=== PATIENT | male | born 1940 | race Caucasian/White ===

== ENCOUNTER → 2017-07-31 | Outpatient (CLI) | payer BC ==
--- NOTE | 2017-07-31 15:10 | XR ---
EXAMINATION TYPE: XR chest 2V DATE OF EXAM: 07/31/2017 COMPARISON: NONE HISTORY: Centrilobular emphysema TECHNIQUE: Frontal and lateral views of the chest are obtained. FINDINGS: Interstitial changes are present within the lungs, lung volumes are increased. The aorta i s dense. The heart is small. Pulmonary artery may be prominent, correlate for possible pulmonary shen ry hypertension. Patient is rotated. There may be a scoliosis. Bone density is decreased. No pneumoth orax or pleural effusion. IMPRESSION: Findings compatible with patient's history and additional findings described above.
== END | disposition home or self-care (01) ==
LOC: RADXRYALE 13:45
PROVIDERS: ATTEND Internal Medicine
DX: J43.2 Centrilobular emphysema (principal)
CPT/HCPCS: 71020

== ENCOUNTER → 2018-04-28 | Outpatient (CLI) | payer BC ==
--- NOTE | 2018-04-28 08:44 | CT ---
EXAMINATION TYPE: CT iac w con DATE OF EXAM: 04/28/2018 COMPARISON: NONE HISTORY: Tinnitus and hearing loss CT DLP: 219 mGycm Automated exposure control for dose reduction was used. CONTRAST: CT scan of the IACs is performed with IV Contrast, patient injected with 100 mL of Isovue 300. FINDINGS: The external auditory canals are patent bilaterally. Mastoid air cells show no evidence of abnormal opacification bilaterally. The middle ear ossicles are symmetric and unremarkable. There is no evidence of suspicious surrounding soft tissue density to suggest cholesteatoma. The scu rex is preserved bilaterally. The cochlea and the semicircular canals are symmetric and unremarkable. Vestibular aqueduct and inte rnal carotid canal appear unremarkable. Temporomandibular joints are maintained bilaterally. There is moderate to severe changes of chronic sinusitis. There is be moderate changes of left mastoi ditis. IMPRESSION: 1. Left mild to moderate mastoiditis. 2. Moderate to severe changes of chronic sinusitis
== END | disposition home or self-care (01) ==
LOC: RADCTMAIN 06:34
PROVIDERS: ATTEND Internal Medicine
DX: H70.92 Unspecified mastoiditis, left ear (principal); J32.9 Chronic sinusitis, unspecified
CPT/HCPCS: 82565; 84520; 70481; 36415; Q9967

== ENCOUNTER → 2018-05-11 | Outpatient (CLI) | payer BC ==
--- NOTE | 2018-05-11 10:17 | XR ---
EXAMINATION TYPE: XR chest 2V DATE OF EXAM: 05/11/2018 COMPARISON: 07/31/2017 HISTORY: 77-year-old male COPD, preop for ear surgery TECHNIQUE: PA and lateral views FINDINGS: Heart normal size. Mild atherosclerotic arch calcifications. There are scattered areas of peripheral scarring and scattered strandy scarring. Hazy midlung density is related to overlying soft tissue. Fl attening of the hemidiaphragm with increased AP chest dimension. No consolidation or pleural effusion . Bilateral nipple shadows. IMPRESSION: 1. COPD. Chronic appearing parenchymal changes. Given patient's increased risk for development of feliz g cancer, consider nonemergent follow-up CT to exclude underlying pulmonary nodules. 3. No acute process seen.
== END | disposition home or self-care (01) ==
LOC: RADXRMAIN 08:21
PROVIDERS: ATTEND Otolaryngology
DX: J44.9 Chronic obstructive pulmonary disease, unspecified (principal)
CPT/HCPCS: 71046

== ENCOUNTER → 2018-05-18 | Outpatient (CLI) | payer BC ==
[2018-05-18 18:36] LABS: Blood Urea Nitrogen 18 mg/dL (9-20)
--- NOTE | 2018-05-18 23:50 | CT ---
EXAMINATION TYPE: CT chest w con DATE OF EXAM: 05/18/2018 COMPARISON: Radiograph 05/11/2018 HISTORY: 77-year-old male pulmonary nodule, Pre-surgical for myringotomy tubes. TECHNIQUE: Contiguous axial scanning of the chest after the administration of 100ml mL of Isovue M300 . Coronal/sagittal reconstructions performed. CT DLP: 138.6mGycm. Automatic exposure control utilized for a dose reduction. FINDINGS: Heart normal size without pericardial effusion. Coronary vessel calcifications are present. Aorta normal caliber with mild atherosclerotic arch calcifications. Conventional arterial vessel bran haylee anatomy. Prominent but nonenlarged 8mm left tracheobronchial angle lymph node. No thoracic lymphadenopathy by CT size criteria. Borderline to mildly enlarged caliber to the main right and left pulmonary arteries is 2.6 and 2.7 cm , respectively, suggesting underlying pulmonary arterial hypertension. There is moderate to advanced centrilobular and paraseptal emphysema with over the midlung predominan t bullous changes. No consolidation or pleural effusion. No suspicious pulmonary nodule or mass is id entified. Scattered hypodense lesions within the liver too small for accurate CT characterization, likely cysts . Bones: Accentuated midthoracic kyphosis with moderate multilevel degenerative disc disease. IMPRESSION: 1. COPD with moderate to advanced emphysema and upper to mid lung predominant bullous changes. No amy picious pulmonary nodule or mass. 2. Pulmonary arterial hypertension and CAD.
== END | disposition home or self-care (01) ==
LOC: RADCTMAIN 18:06
PROVIDERS: ATTEND Otolaryngology
DX: J43.9 Emphysema, unspecified (principal); I27.20 Pulmonary hypertension, unspecified; I25.10 Atherosclerotic heart disease of native coronary artery without angina pectoris; R91.8 Other nonspecific abnormal finding of lung field
CPT/HCPCS: 82565; 84520; 71260; 36415; Q9967

== ENCOUNTER 2018-05-21 08:25 | Day surgery (SDC) | payer BC ==
[2018-05-15 13:40] VITALS: BMI 20.3
[~2018-05-21 08:25] MED LIST: DEXAMETHASONE SOD PHOSPHATE 4 MG/ML 1 ML VIAL IV ONE; FAMOTIDINE 20 MG/2 ML VIAL IV ONE; LACTATED RINGERS 1,000 ML IV SCH; LIDOCAINE 1% 20 ML VIAL (10MG/ML) FOR IV START INTRADERMA PRN; MELOXICAM 7.5 MG TAB PO ONE; ONDANSETRON 4 MG/2 ML VIAL IVP ONE; ceFAZolin 1,000 MG in DEXTROSE/WATER 1 50ML.BAG IV ONE
[2018-05-21] MEDS: OXYMETAZOLINE 0.05% NASL SPRAY 1 SPRAY BOTTLE NASAL ONE ×5 (09:40→10:00)
[2018-05-21] MEDS ORDERED: DEXAMETHASONE SOD PHOSPHATE 10 MG/ML 1 ML VIAL IV ONE (09:50)
[2018-05-21] MEDS ORDERED: ONDANSETRON 4 MG/2 ML VIAL IVP ONE (09:50)
[2018-05-21] MEDS ORDERED: MIDAZOLAM 2 MG/2 ML VIAL ONE (10:39)
[2018-05-21] MEDS ORDERED: LIDOCAINE 1% INJ 10MG/ML (20 ML MDV) ONE (10:39)
[2018-05-21] MEDS ORDERED: fentaNYL (PF) 50 MCG/ML 2 ML AMP ONE (10:39)
[2018-05-21] MEDS ORDERED: DEXAMETHASONE SOD PHOS (MDV) 100 MG/10 ML VIAL ONE (10:39)
[2018-05-21] MEDS ORDERED: PROPOFOL 10 MG/ML 20 ML VIAL IV ONE (10:39)
[2018-05-21] MEDS ORDERED: SUCCINYLCHOLINE CHLORIDE 100 MG/5 ML SYR IV ONE (10:39)
[2018-05-21] MEDS ORDERED: CIPROFLOXACIN-DEXAMETH 0.3-0.1% DROPS 7.5 ML BTL BOTH EARS ONE (10:56)
[2018-05-21] MEDS ORDERED: EPINEPHrine 1 MG/ML (MDV) 30 ML VIAL IRRIGATION ONE (10:57)
[2018-05-21] MEDS ORDERED: FLUORESCEIN STRIPS 1 MG STRIP MISCELLANE ONE (10:57)
[2018-05-21] MEDS ORDERED: LIDOCAINE 1%-EPI 1:100,000 20 ML VIAL SQ ONE ×2 (10:57)
[2018-05-21] MEDS ORDERED: ROPIVACAINE 5 MG/ML 30 ML VIAL MISCELLANE ONE (10:59)
[2018-05-21 12:20] VITALS: TEMP 97.1
--- NOTE | 2018-05-21 12:28 | P.OP ---
Date of Procedure: 05/21/18 Preoperative Diagnosis: Chronic otitis media with effusion Eustachian tube dysfunction Conductive hearing loss Chronic maxillary, ethmoid, sphenoid sinusitis Left tonsil mass Deviated nasal septum Postoperative Diagnosis: Same Procedure(s) Performed: Bilateral direct microscopic tympanostomy tube placement Bilateral balloon eustachian tuboplasty Functional endoscopic sinus surgery Left tonsil biopsy Septoplasty Anesthesia: GETA Surgeon: Aneudy Lucas Estimated Blood Loss (ml): 10 Pathology: other (Sinonasal and left tonsil) Condition: stable Disposition: PACU Indications for Procedure: This patient has had problems with persistent eustachian tube dysfunction bilateral middle ear effusions hearing loss chronic sinusitis congestion. He has severe ear fullness congestion and blockage of both eustachian tubes in spite of medical therapy. He's been on multiple trials of antibiotics nasal sprays etc. with no improvement he has nasal obstruction, anosmia, he continues to smoke AGAINST MEDICAL ADVICE. He gets facial pressure. Drainages constantly discolored. He is motivated to find a surgical option. All risks, benefits, and alternative therapies were discussed. Consent was obtained and all questions were answered. Operative Findings: Patient had severe bilateral middle ear effusion was severe eustachian tube dysfunction and evidence of chronic sinusitis of the maxillary ethmoid and sphenoid sinuses. Deviated septum to the right with severe. Left tonsil was enlarged and suspicious. This was biopsied accordingly. Description of Procedure: Prior to surgery, all risks, benefits, and alternative therapies were discussed again with the patient and family. Risks of bleeding, need for second tubes, perforation, early extrusion of tubes, etc. etc. were explained. All questions were answered and a consent was obtained. This patient was taken to the operative room and placed in the supine position. Mask inhalation anesthesia was performed by the department of anesthesia. The patient was monitored throughout the entire case by the department of anesthesia. Both tympanic membranes were visualized with an operating Zeiss microscope. Cerumen and epithelial debris was removed from the external auditory canals bilaterally. The tympanic membranes were visualized under an operative microscope. Tympanostomy incisions were made inferiorly. Fluid was suctioned from the middle ear space with use of a #3 and #5 Bishop suction with care to avoid any trauma to the middle ear structures. Ventilation tubes were then inserted bilaterally. Excellent placement was obtained. A caudal incision was made over the caudal portion of the left septum down to the mucoperichondrium. A mucoperichondrial flap was developed with use of tunnels inferiorly and superiorly. We identified the deviation and with use of crosshatching incisions and removal of some redundant strips of septal cartilage , the septum was placed back in the midline in excellent position relieving this patient of this deviated nasal septum. We closed the incision with a 40 rapid Vicryl and a quilting stitch was used to reapproximate the septal flap. The septum was corrected and a swing door type fashion. The septum was sutured fixated to the vomer area and groove with use of a 40 rapid Vicryl. Attention was then paid to the middle turbinates which were brought medial. The uncinate process was visualized and reflected forward with a Rose probe. With the use of an endoscope utilizing 0 30 and 90 we perform this procedure and utilize this endoscope on a video camera throughout the entire procedure. This was with use of a Ledbetter edd scope. We then took down the uncinate process with a pediatric backbiter and a microdebrider. After the uncinate process was removed the maxillary sinuses were opened widely with use of a straight boss. We open the maxillary sinuses widely and into the maxillary sinuses with endoscopic visualization. Diseased tissue was removed from the maxillary sinuses bilaterally and the sinuses were opened bilaterally. After the maxillary sinuses were opened and diseased tissue was removed attention was then paid to the ethmoid bulla. From a medial to lateral position we took down the ethmoid bulla. We identified the roof of the maxillary sinus and the inferior attachment of the superior turbinate and then took down the basal lamella and into the posterior ethmoid air cells. We did a total ethmoidectomy with use of an up-biting boss. Excellent results were obtained. Diseased tissue was found in the ethmoid sinuses and removed. Examination of the sphenoid ostium showed a profuse amount of drainage coming from the ostium's bilaterally. We then entered the sphenoid sinus underneath the inferior attachment of the superior turbinate. The sphenoid sinus was opened with the microdebrider and diseased tissue was removed from each sphenoid sinus. This was also done with use of endoscopic visualization. . Excellent hemostasis was obtained throughout the entire case and very low blood was noted. The skull base and orbital hernandez looked good. We reinspected the sinonasal region and no bleeding was encountered. Xerogel was placed bilaterally. An endoscope was inserted utilizing a 0 Ledbetter edd scope and a a aclarent balloon eustachian tuboplasty balloon was inserted into the eustachian tubes bilaterally under endoscopic visualization. There was fibrosis noted in the eustachian tube as we inserted the tube. The tube was inflated in the standard fashion. The patient tolerated this well and the instrumentation was removed. Attention was then paid to the mouth which was opened and the tonsils were visualized bilaterally the left side was much bigger than the right a left tonsil biopsy was performed and hemostasis was obtained with use of suction electrocoagulation. Excellent biopsy was performed and hemostasis was complete. .
[2018-05-21] MEDS: HYDROmorphone 0.5 MG/0.5 ML SYRINGE IVP PRN ×3 (12:31→12:55)
[2018-05-21 13:01] VITALS: RESP 18
[2018-05-21 13:34] VITALS: BP 117/78; PULSE 78
== END 2018-05-21 14:02 | disposition home or self-care (01) ==
LOC: OR 08:25
PROVIDERS: ATTEND Otolaryngology
DX: H65.493 Other chronic nonsuppurative otitis media, bilateral (principal); H69.93 Unspecified Eustachian tube disorder, bilateral; H90.2 Conductive hearing loss, unspecified; J32.0 Chronic maxillary sinusitis; J32.2 Chronic ethmoidal sinusitis; J32.3 Chronic sphenoidal sinusitis; J35.1 Hypertrophy of tonsils; J34.2 Deviated nasal septum; H70.92 Unspecified mastoiditis, left ear; J43.9 Emphysema, unspecified; K21.9 Gastro-esophageal reflux disease without esophagitis; F17.200 Nicotine dependence, unspecified, uncomplicated; Z79.2 Long term (current) use of antibiotics; Z79.51 Long term (current) use of inhaled steroids; Z79.899 Other long term (current) drug therapy
CPT/HCPCS: 88305; 88300; 69436; 30520; 31267; 31259; 69799; 42800; C1726; J0171; J2250; J1100 ×2; J2405; J2001; J3010; J0690; J2795; J0330; J2704; J1170

== ENCOUNTER → 2018-07-14 | Outpatient (CLI) | payer BC ==
--- NOTE | 2018-07-14 23:59 | CT ---
EXAMINATION TYPE: CT iac wo con DATE OF EXAM: 07/14/2018 COMPARISON: 04/28/2018 HISTORY: 77-year-old male chronic sinusitis, c/o fluid in ears with hearing loss, mastoiditis. CT DLP: 117.2 mGycm Automated exposure control for dose reduction was used. TECHNIQUE: Contiguous high-resolution axial scanning of the temporal bones performed without IV cont rast. Coronal reformatted images obtained. FINDINGS: Visualized intracranial structures show no gross abnormality by thin section CT. Small amount of debris deep within both external auditory canals adjacent to the tympanic membranes. The external auditory canals are otherwise patent. No partial opacification within the right epitympanum and mesotympanum partially encasing the malleus and incus. Partial opacification of right mastoid air cells. The left middle ear cavity remains ashley r though there is continued partial opacification of the mid and inferior left mastoid air cells. No destruction of the fine osseous septa of the mastoid air cells. There is no abnormality of middle ear ossicles. The round and oval windows are normal. There is no abnormality of bony labyrinths. The vestibular aqueduct are well visualized. The facial nerve canal is normal bilaterally. The internal auditory canal and meati are symmetrical bilaterally. There is no evidence of fractures. Suggestion of prior FESS with improved mucosal thickening within sphenoid and maxillary sinuses thoug h persistent moderate mucosal thickening in the ethmoid air cells. Reformatted images confirm above findings. IMPRESSION: 1. Correlate for new right-sided otomastoiditis. 2. Continued opacification of the mid and inferior left mastoid air cells which could represent masto iditis. 3. Some debris now noted deep within both external auditory canals adjacent to the tympanic membranes . 4. Continued moderate chronic ethmoid sinus disease. There is improvement in the previously seen sphe noid and maxillary sinus disease.
== END | disposition home or self-care (01) ==
LOC: RADCTMAIN 15:17
PROVIDERS: ATTEND Otolaryngology
DX: H70.90 Unspecified mastoiditis, unspecified ear (principal)
CPT/HCPCS: 70480

== ENCOUNTER → 2019-03-24 | Outpatient (CLI) | payer BC ==
--- NOTE | 2019-03-24 10:13 | XR ---
EXAMINATION TYPE: XR chest 2V DATE OF EXAM: 03/24/2019 COMPARISON: 05/11/2018 HISTORY: Shortness of breath TECHNIQUE: Frontal and lateral views of the chest are obtained. FINDINGS: Scattered senescent parenchymal changes noted. Hyperinflation compatible with COPD. No evidence for infiltrate. No evidence for atelectasis. Heart size is stable. Mediastinal structures are stable and grossly unremarkable. No evidence for hilar prominence. Degenerative changes dorsal spine. IMPRESSION: 1. No evidence for acute pulmonary disease.
== END ==
LOC: RADXRYALE 09:45
PROVIDERS: ATTEND Internal Medicine
DX: R59.0 Localized enlarged lymph nodes (principal)
CPT/HCPCS: 71046

== ENCOUNTER 2021-06-23 10:05 | Emergency (ER) | payer OTHER, BC ==
[2021-06-23 10:20] VITALS: TEMP 98.4
[2021-06-23] MEDS ORDERED: MORPHINE SULFATE 2 MG/ML SYRINGE IM STA (10:41)
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
[2021-06-23 11:52] VITALS: BP 132/76; PULSE 67; RESP 16
== END 2021-06-23 12:57 | disposition home or self-care (01) ==
LOC: EC 10:05
DX: S32.010A Wedge compression fracture of first lumbar vertebra, initial encounter for closed fracture (principal); J44.9 Chronic obstructive pulmonary disease, unspecified; F17.200 Nicotine dependence, unspecified, uncomplicated; Z79.899 Other long term (current) drug therapy; V43.52XA Car driver injured in collision with other type car in traffic accident, initial encounter; Y92.89 Other specified places as the place of occurrence of the external cause
CPT/HCPCS: 72170; 73080; 72131; 99284; 96372; J2270

== ENCOUNTER → 2021-06-29 | Outpatient (CLI) | payer BC ==
[2021-06-29 13:55] LABS: Basophils # (A) 0.1 k/uL (0-0.2); Basophils % (A) 1 %; Eosinophils # (A) 0.1 k/uL (0-0.7); Eosinophils % (A) 2 %; HCT 44.4 % (39.0-53.0); HGB 14.5 gm/dL (13.0-17.5); Lymphocytes # (A) 1.9 k/uL (1.0-4.8); Lymphocytes % (A) 29 %; MCH 33.6 pg (25.0-35.0); MCHC 32.7 g/dL (31.0-37.0); MCV 102.7 fL (80.0-100.0); Macrocytosis Slight; Mean Platelet Volume 6.8; Monocytes # (A) 0.3 k/uL (0-1.0); Monocytes % (A) 4 %; Neutrophils # (A) 3.9 k/uL (1.3-7.7); Neutrophils % (A) 61 %; Platelet Count 277 k/uL (150-450); RBC 4.33 m/uL (4.30-5.90); RDW 14.6 % (11.5-15.5); WBC 6.5 k/uL (3.8-10.6)
[2021-06-29 14:13] LABS: Potassium 4.8 mmol/L (3.5-5.1)
== END | disposition home or self-care (01) ==
LOC: LABPAT 12:24
PROVIDERS: ATTEND Orthopaedic Surgery
DX: Z01.812 Encounter for preprocedural laboratory examination (principal); S32.012A Unstable burst fracture of first lumbar vertebra, initial encounter for closed fracture; X58.XXXA Exposure to other specified factors, initial encounter
CPT/HCPCS: 36415; 80051; 85025

== ENCOUNTER 2021-07-03 06:22 | Observation (INO) | payer BC ==
[2021-06-29 11:46] VITALS: BMI 19.5
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
[~2021-07-03 06:22] MED LIST changes: -DEXAMETHASONE SOD PHOSPHATE 4 MG/ML 1 ML VIAL IV ONE; -FAMOTIDINE 20 MG/2 ML VIAL IV ONE; -LACTATED RINGERS 1,000 ML IV SCH; +LIDOCAINE 1% (10MG/ML) FOR IV START INTRADERMA PRN; -LIDOCAINE 1% 20 ML VIAL (10MG/ML) FOR IV START INTRADERMA PRN; -MELOXICAM 7.5 MG TAB PO ONE; -ceFAZolin 1,000 MG in DEXTROSE/WATER 1 50ML.BAG IV ONE
[2021-07-03] MEDS: LACTATED RINGERS 1,000 ML IV SCH (07:31)
--- NOTE | 2021-07-03 08:09 | P.PN ---
Progress Note - Text Progress Note Date: 07/03/21 Pt s/e in pre op. All protocols followed. We discussed again the risks and benefits of the procedure as outlined. Pt was willing to proceed with surgery. ABX given. site marked. Consent confirmed.
[2021-07-03] MEDS ORDERED: NEOSTIGMINE 1 MG/ML 10 ML VIAL ONE (08:38)
[2021-07-03] MEDS ORDERED: LIDOCAINE 1% INJ 10MG/ML (20 ML MDV) ONE (08:38)
[2021-07-03] MEDS ORDERED: ROCURONIUM 10 MG/ML (5 ML VIAL) IV ONE (08:38)
[2021-07-03] MEDS ORDERED: PHENYLEPHRINE-0.9% NACL SYG 1,000 MCG/10 ML SYRINGE ONE (08:38)
[2021-07-03] MEDS ORDERED: GLYCOPYRROLATE 0.2 MG/ML 2 ML VIAL ONE (08:38)
[2021-07-03] MEDS ORDERED: SUCCINYLCHOLINE CHLORIDE 100 MG/5 ML SYR IV ONE (08:38)
[2021-07-03] MEDS ORDERED: fentaNYL (PF) 50 MCG/ML 2 ML AMP ONE (08:38)
[2021-07-03] MEDS ORDERED: KETAMINE 10 MG/ML 20 ML VIAL ONE (08:38)
[2021-07-03] MEDS ORDERED: PROPOFOL 10 MG/ML 20 ML VIAL IV ONE (08:38)
[2021-07-03] MEDS ORDERED: IOPAMIDOL M200 10 ML VIAL MISCELLANE ONE (08:54)
[2021-07-03] MEDS ORDERED: MINERAL OIL 1 APPLIC/ML OIL MISCELLANE ONE (08:55)
[2021-07-03] MEDS ORDERED: BUPIVACAINE (PF) 0.25% 30 ML VIAL SQ ONE ×2 (08:58)
[2021-07-03] MEDS ORDERED: GELATIN SPONGE,ABSORB (LARGE) 1 EACH SPONGE TOPICAL ONE (09:05)
[2021-07-03] MEDS ORDERED: THROMBIN (BOVINE) 5,000 UNIT VIAL TOPICAL ONE (09:05)
[2021-07-03] MEDS ORDERED: LACTATED RINGERS 1,000 ML IV ONE (10:45)
[2021-07-03] MEDS ORDERED: CYCLOBENZAPRINE 5 MG TAB PO PRN (11:15)
--- NOTE | 2021-07-03 11:17 | P.PN ---
Progress Note - Text Progress Note Date: 07/03/21 Brief Post Op: Surgeon: Rashmi Pre op dx; L1 burst fracture Post op dx: Same Procedure: T11 to L2 posterior instrumented stabilization with L1 kyphoplasty Anesthesia: GETA EBL: 50 mL Fluids: Thousand cc UO: 500 mL Dispo: Stable to PACU Post op Plan: Post operative noncontrasted CT scan Encourage ambulation IS 10x/hr Teds/SCDs Pain control No brace needed for ambulation
[2021-07-03] MEDS: HYDROmorphone 0.5 MG/0.5 ML SYRINGE IVP PRN ×4 (11:20→12:17)
--- NOTE | 2021-07-03 12:11 | FL ---
Fluoroscopy INDICATION: Pain FINDINGS: Fluoroscopy time: 1 minute 46 seconds. Images obtained: 0. IMPRESSIONS: 1. Documentation of fluoroscopy.
[2021-07-03] MEDS: HYDROcodone/APAP 5-325MG 1 EACH TAB PO PRN ×2 (14:52→23:03)
--- NOTE | 2021-07-03 15:30 | XR ---
Fluoroscopy INDICATION: Pain, kyphoplasty FINDINGS: Fluoroscopy time: 1 minute 46 seconds. Images obtained: 0. IMPRESSIONS: 1. Documentation of fluoroscopy.
[2021-07-03] MEDS ORDERED: IPRATROPIUM-ALBUTEROL 3 ML NEB INHALATION PRN (15:39)
[2021-07-03] MEDS ORDERED: MORPHINE SULFATE 4 MG/ML SYRINGE IVP STA (15:39)
[2021-07-03] MEDS ORDERED: NICOTINE GUM (POLACRILEX) 2 MG GUM BUCCAL PRN (15:47)
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
[2021-07-03] MEDS: NICOTINE 21MG/24HR PATCH TRANSDERM SCH (17:03)
--- NOTE | 2021-07-03 18:39 | CT ---
EXAMINATION TYPE: CT thor lumbar spine wo con DATE OF EXAM: 07/03/2021 COMPARISON: same-day radiographs. CT 06/23/2021. HISTORY: Post op fusion today. TECHNIQUE: Axial CT images of the thoracolumbar spine was performed without contrast. Coronal and sag ittal reformats were provided and reviewed. CT DLP: 895 mGycm Automated exposure control for dose reduction was used. FINDINGS: There is interval T11, L1 and L2 vertebral plasty. There is also demonstration of T11-L2 posterior in strumented fusion. There is chronic moderate L1 compression fracture. There is also mild T11 compress ion deformity. No new fracture is seen. There is moderate soft tissue emphysema within the posterior paraspinal soft tissues most notable at the surgical site and tracking cranially and caudally. No significant fluid collection is seen. No si gnificant central canal stenosis within the limitations of the CT. Moderate to advanced emphysema is seen. Otherwise no significant focal opacity, pleural effusion or p neumothorax seen. IMPRESSION: INTERVAL THORACOLUMBAR POSTSURGICAL CHANGES ABOVE. POSTOPERATIVE PARASPINAL SOFT TISSUE EMPHYSEMA IS SEEN. OTHERWISE NO DEFINITE ACUTE ABNORMALITY WITHIN THE LIMITATIONS OF THE STUDY.
[2021-07-03] MEDS: SENNOSIDES-DOCUSATE SODIUM 1 EACH TAB PO PRN (19:54)
[2021-07-04] MEDS ORDERED: HYDROcodone/APAP 7.5-325MG 1 EACH TAB PO PRN (01:57)
[2021-07-04] MEDS ORDERED: HYDROmorphone 0.5 MG/0.5 ML SYRINGE IVP PRN (01:58)
[2021-07-04] MEDS: HYDROmorphone 1 MG/ML 1 ML SYRINGE IVP PRN ×3 (02:25→22:52)
[2021-07-04] MEDS: LACTATED RINGERS 1,000 ML IV SCH (07:05)
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
[2021-07-04] MEDS ORDERED: ACETAMINOPHEN IV (For NPO) 1,000 MG in EMPTY BAG 1 BAG IVPB STA (07:59)
[2021-07-04] MEDS: NICOTINE 21MG/24HR PATCH TRANSDERM SCH (08:44)
[2021-07-04] MEDS: PANTOPRAZOLE 40 MG TABLET PO SCH (08:44)
[2021-07-04] MEDS: polyethylene glycoL 3350 17 GM POWD.PACK PO SCH (08:44)
[2021-07-04] MEDS: HYDROcodone/APAP 7.5-325MG 1 EACH TAB PO PRN ×3 (09:06→21:09)
[2021-07-04] MEDS: CYCLOBENZAPRINE 10 MG TAB PO PRN ×2 (09:07→21:09)
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
[2021-07-04] MEDS: valACYclovir 500 MG TAB PO SCH (14:00)
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
[2021-07-04] MEDS: SENNOSIDES-DOCUSATE SODIUM 1 EACH TAB PO PRN (22:52)
[2021-07-05] MEDS: HYDROcodone/APAP 7.5-325MG 1 EACH TAB PO PRN ×4 (04:10→21:37)
[2021-07-05] MEDS: HYDROmorphone 1 MG/ML 1 ML SYRINGE IVP PRN (06:29)
[2021-07-05] MEDS: LACTATED RINGERS 1,000 ML IV SCH (07:37)
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
[2021-07-05 09:20] LABS: Basophils # (A) 0.02 X 10*3/uL (0.00-0.10); Basophils % (A) 0.3 %; Eosinophils # (A) 0.08 X 10*3/uL (0.04-0.35); Eosinophils % (A) 1.3 %; HGB 11.3 g/dL (13.0-17.0); Lymphocytes # (A) 1.32 X 10*3/uL (0.90-5.00); Lymphocytes % (A) 21.2 %; MCH 32.5 pg (27.0-32.0); MCHC 33.2 g/dL (32.0-37.0); MCV 97.7 fL (80.0-97.0); Mean Platelet Volume 9.8 fL (9.5-12.2); Monocytes # (A) 0.49 X 10*3/uL (0.20-1.00); Monocytes % (A) 7.9 %; Platelet Count 182 X 10*3/uL (140-440); RBC 3.48 X 10*6/uL (4.40-5.60); RDW 14.2 % (11.5-14.5); WBC 6.23 X 10*3/uL (4.50-10.00)
[2021-07-05] MEDS: polyethylene glycoL 3350 17 GM POWD.PACK PO SCH (09:30)
[2021-07-05] MEDS: valACYclovir 500 MG TAB PO SCH (09:32)
[2021-07-05] MEDS: PANTOPRAZOLE 40 MG TABLET PO SCH (09:32)
[2021-07-05] MEDS: NICOTINE 21MG/24HR PATCH TRANSDERM SCH (09:33)
[2021-07-05 10:07] LABS: African American GFR (CKD) 93.2 (60.0-200.0); Albumin 3.5 g/dL (3.80-4.90); Albumin/Globulin Ratio 1.35 (1.60-3.17); BUN/Creat Ratio 12.22 Ratio (12.00-20.00); Calcium 8.5 mg/dL (8.7-10.3); Globulin 2.6 g/dL (1.6-3.3); Non-African American GFR(CKD) 80.4 (60.0-200.0); Potassium 3.7 mmol/L (3.5-5.5); Total Bilirubin 0.7 mg/dL (0.3-1.2); Total Protein 6.1 g/dL (6.2-8.2)
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
[2021-07-05] MEDS: SENNOSIDES-DOCUSATE SODIUM 1 EACH TAB PO PRN (19:49)
[2021-07-06] MEDS: HYDROcodone/APAP 7.5-325MG 1 EACH TAB PO PRN (04:11)
[2021-07-06] MEDS: LACTATED RINGERS 1,000 ML IV SCH (04:13)
[2021-07-06 06:51] VITALS: BP 145/70; PULSE 83; RESP 20; TEMP 98
[2021-07-06] MEDS: PANTOPRAZOLE 40 MG TABLET PO SCH (07:24)
--- NOTE | 2021-07-06 08:59 | P.DS ---
Providers Date of admission: 07/04/21 13:42 Expected date of discharge: 07/06/21 Attending physician: Selvin Caraballo DO Consults: 07/03/21 11:08 Consult Physician Routine Consulting Provider: Nu Burnham Consult Reason/Comments: medical management s/p T11-L3 MIS screws & rods & Kyphoplasty Do you want consulting provider notified?: Yes Primary care physician: Todd Chow Hospital Course: Date of admission: 07/03/2021 Date of discharge: 07/06/2021 Admission diagnosis: L1 AOA3 burst fracture Discharge diagnosis: Same Attending physician: Dr. Caraballo Surgical procedures: T11 to L2 posterior instrumentation and fusion; L1 kyphoplasty; michael intraoperative navigation Brief history: Patient is a 80-year-old male with a history of L1 AOA3 burst fracture and mechanical back pain. At this point patient has failed conservative treatment measures and has opted to proceed with a elective T11 to L2 posterior instrumentation and fusion; L1 kyphoplasty. Hospital course: Details of patient's surgery can be found in operative report. Patient tolerated the procedure well and was subsequently transported to orthopedic floor. Patient's orthopedic and medical care was provided daily. Patient had daily laboratory tests performed for evaluation of overall blood counts. Patient had daily physical therapy to include strengthening range of motion as well as education with walker ambulation. Patient was noted to have a relatively uneventful postoperative course. Patient reported satisfactory pain control with oral pain medications by postoperative day 3. Patient showed satisfactory progress with physical therapy. Patient moved steadily through the program and had no difficulty meeting the goals by postoperative day 3. Given patient's otherwise satisfactory course and having met physical therapy goals, plan is to discharge patient home on postoperative day 3. Discharge condition/disposition: Patient will be discharged home in stable condition. Discharge medications: Instructions are given on resumption of patient's normal daily medications per primary care recommendation, in addition patient will be prescribed [place] 7.5 mg/325 mg; Flexeril 10 mg; senna; miralax Spine Discharge and Recovery Instructions Medications: See medication list All medication refills should be obtained through your primary care doctor or your clinic spine surgeon. Please discuss prescription refills at your follow up appointment. Do not call the hospital for medication refills. Dressing: Leave your dressing in place for a total of 5 days post operatively. Then you may remove your dressing and leave open to air. Keep the area clean and if not able to keep area clean, then cover with sterile gauze and tape. Showering: You may shower 3 days after your procedure allowing soap and water to run over incision. Do not scrub. Do not soak. Blot dry. Follow up: Please confirm a follow up appointment with your surgeon 3 weeks post operatively. Please make an appointment to follow up with your PCP in 1-2 weeks after surgery for evaluation 3 phase, 3-week plan POST OP WEEKS 1-3 1. Lifting/carrying/pushing/pulling limited to less than 5 pounds. 2. Do not sit for longer than 15 minutes at one time. Get up and walk around. Prolonged sitting is NOT advised. If you lay down, see if you can tolerate laying down on you front (belly side) 3. Walk for periods of 15 minutes = 1 mile but no longer; do it multiple times times each day. 4. Ice your low back after activity. POST OP WEEKS 3-6 1. Lifting limited to less than 20 pounds. 2. Do not sit for longer than 30 minutes at a time. Frequently change positions. Use a sit-to stand workstation or take frequent breaks from sitting if you have returned to work. 3. Walk for 30 minutes each day. If possible, do these three or more times a day POST OP WEEKS 6+ At your 6-week appointment we will give you a physical therapy referral to focus on a core stabilization and strengthening program. You should also work on leg & buttock strengthening, hamstring & quadriceps stretching, and continue a low impact aerobic activity program such as swimming, walking, or riding a stationary bicycle. During the initial 6 weeks after your surgery, you are at the highest risk of re-injuring your spine. You should generally avoid BLTs (bending, lifting and twisting combination motions) and follow the above guidelines to reduce the ch ance of reinjury. You can anticipate post op appointments in our office at approximately 3 weeks and 6 weeks after your surgery. INCISION CARE: If your incision is not draining you do NOT need to cover it with a dressing. Keep your incision clean, dry and intact. In most cases, we apply skin glue, christian or sutures to the incision at the time of surgery. This will be like a crust or have the appearance of a scab and will fall off in time on its own. The stitches or christian need to be removed at 3 weeks post op appointment. You may begin to shower 3 days after surgery (this allows the glue to rodriguez well). However, please avoid scrubbing the incision site or peeling off any of the skin glue. This will ensure optimal healing of your incision. Also, during this time avoid soaking the incision area in water - this includes swimming pools, hot tubs or baths. No ointments, lotions or oils on the incision until your surgeon allows. Leave christian, sutures or glue in place. Neurological dysfunction that comes on suddenly can also be a sign of a stroke. Below some common symptoms of a stroke are listed: B - balance difficulty such as sudden onset walking or leaning to one side - NEW E - eye problem such as sudden double vision or trouble seeing on one side - NEW F - Facial weakness or numbness on one side - NEW A - Arm or leg weakness or numbness on one side - NEW S - Slurred speech or difficulty with word finding - NEW T - Time is BRAIN! Call 911 as soon as you recognize these symptoms Diet: Consume a regular diet rich in vegetables and lean protein such as chicken or fish. You should consume in a ratio of approximately 20% fats|40% carbohydrates|40%protein. Vegetables, sweet potatoes, brown rice or quinoa are examples of good carbohydrates. Chips, white bread, cookies and sweets/sugar are examples of bad carbohydrates. Limit your bad carbs, go wild with good carbs. "Life's Simple 7" Guidelines as per [place] [employer] These will help you reclaim your life after surgery and technician's helper in your recovery, keeping in mind your restrictions. (1) Get Active. Physical activity can help people lose weight, control high blood pressure and cholesterol, feel emotionally better, and sleep better. (2) Control Cholesterol. Avoid a diet high in saturated fat, trans fat, & cholesterol. Limit whole milk & cream, ice cream, butter, egg yolks, processed meats (like sausage and hot dogs), and fatty meats. Choose healthy foods that are low in saturated fat, trans fat and cholesterol which include: Fruits and vegetables, fiber rich grain products (like whole grain pasta and brown rice), lean meat such as chicken, fish, nuts, seeds, and legumes. (3) Eat Better. Eat small portions. Shop at the grocery with a list and do not stray from it. Tips for a healthy diet include: Limit sodium intake to less than 1500mg daily, avoid prepackaged, processed, and fast foods, choose a diet rich in fruits, vegetables, and whole grain, high fiber foods, and limit saturated & cholesterol in your diet. (4) Manage Blood Pressure. If you have high blood pressure, you should have a cuff at home so that you can check your blood pressure regularly. Be sure you have a good cuff. An arm one is generally better than a wrist one. Bring the cuff to a doctor's appointment to validate that the measurements that your cuff are taking are accurate. Take your blood pressure twice daily when you are sitting down and relaxing. Record the numbers in a log and bring this log with you to your doctors' appointments. (5) Lose Weight if your BMI is above 25. A healthy BMI is between 19-25. To calculate Your BMI, you may use a Standard BMI Calculator on the NIH BMI website: <www.nhlbi.nih.gov/guidelines/obesity/BMI/bmicalc.htm>. Weigh oneself daily. If you are overweight, set a goal to lose weight. A pound a week loss if needed is a good target. (6) Reduce Blood Sugar. Limit foods and liquids with "added sugars." (Added sugars include sucrose, fructose, glucose, maltose, dextrose, high fructose corn syrup, corn syrup, concentrated fruit juice and honey). (7) Stop Smoking. If you smoke, quitting smoking is one of the best things that you can do for your health. Smoking increases your risk of heart attack, stroke, and peripheral vascular disease, which is a build-up of plaque in your arteries. Please discard all the cigarettes and lighters in your house. Have a plan for what you will do when you have the urge to smoke. Direct and second- hand smoke shortens your life as well as the lives of your family, friends and others around you. For your health and the health of those around you, please consider quitting! Proper Bending Body Mechanics: Maintain a wide stance with one foot slightly in front of the other. Keep your back straight. Bend utilizing the strength in your hips and knees. Do not bend at the waist. Maintain the lifted object at your waist-level close to your body. Avoid lifting weight that causes immediately pain or pain anywhere in the body afterwards. Smoking/Nicotine If there was ever one thing that you could do to increase your overall health, decrease your risk of cardiovascular problems by about 39% the second you make the choice, it is to STOP SMOKING. Your body's most instant gratification is the second you stop smoking. We have all heard the studies, read the articles but it is true, smoking is extremely bad for your overall health, and moreover it is detrimental to your bone health. Nicotine, IN ANY FORM, kills bone cells, prevents your body from healing fractures, and significantly prolongs healing after surgery. In spine surgery specifically, it increases your risk of not healing your bones to create a fusion and increases your risk of having a revision surgery due to this up to 60%. I know it is hard. I know it feels impossible. But there are ways. Take control of your life. We are here to help you through it. And when you are ready, ask us and we can direct you to help if you desire. Use the START Plan to Quit Smoking (please visit the Helpguide.org website listed below for more information): S = Set a quit date. Choose a date within the next 2 weeks, so you have enough time to prepare without losing your motivation to quit. If you mainly smoke at work, quit on the weekend, so you have a few days to adjust to the change. T = Tell family, friends, and co-workers that you plan to quit. Let your friends and family in on your plan to quit smoking and tell them you need their support and encouragement to stop. Look for a quit susan who wants to stop smoking as well. You can help each other get through the rough times. A = Anticipate and plan for the challenges you'll face while quitting. Most people who begin smoking again do so within the first 3 months. You can help yourself make it through by preparing ahead for common challenges, such as nicotine withdrawal and cigarette cravings. R = Remove cigarettes and other tobacco products from your home, car, and work. Throw away all your cigarettes (no emergency pack!), lighters, ashtrays, and matches. Wash your clothes and freshen up anything that smells like smoke. Shampoo your car, clean your drapes and carpet, and steam your furniture. T = Talk to your doctor about getting help to quit. Your doctor can prescribe medication to help with withdrawal and suggest other alternatives. If you can't see a doctor, you can get many products over the counter at your local pharmacy or grocery store, including the nicotine patch, nicotine lozenges, and nicotine gum. Resources for Quitting Smoking: <https://www.[place].gov/documents/[facility]/Quit_Tobacco_Resources_for_patients_313 480_7.pdf> Supplementation: Take recommended dosages of Vitamin D and Calcium to help fortify your bones and help them to heal. See your health maintenance packet for dosages and recommended levels. DVT/VTE prophylaxis: You will be given compression stockings from the hospital. Wear these daily for the first two weeks after surgery. You may take them off at night. You may be prescribed a medication to help thin your blood. Take this as directed. If you are not prescribed this medication, early and frequent ambulation has been shown to be the best prophylaxis to deep vein thrombosis and sequelae related to this event. Assessment: L1 AOA3 burst fracture Procedures: T11 to L2 posterior instrumentation and fusion; L1 kyphoplasty Patient Condition at Discharge: Good Plan - Discharge Summary Discharge Rx Participant: No New Discharge Prescriptions: New HYDROcodone/APAP 7.5-325MG [[place] 7.5] 1 - 2 each PO Q6HR PRN #42 tab PRN Reason: Pain Cyclobenzaprine [Flexeril] 10 mg PO HS #20 tab polyethylene glycoL 3350 [Miralax] 17 gm PO DAILY #21 packet Sennosides/Docusate Sodium [Senna-S 8.6-50 mg Tablet] 1 each PO DAILY #30 tablet Discontinued Ibuprofen [Motrin] 600 mg PO Q8HR PRN #20 tab PRN Reason: Pain HYDROcodone/APAP 5-325MG [[place] 5-325] 1 tab PO Q6HR PRN #12 tab PRN Reason: Pain No Action valACYclovir [Valtrex] 500 mg PO DAILY Discharge Medication List valACYclovir [Valtrex] 500 mg PO DAILY 06/12/15 [History] Cyclobenzaprine [Flexeril] 10 mg PO HS #20 tab 07/06/21 [Rx] HYDROcodone/APAP 7.5-325MG [[place] 7.5] 1 - 2 each PO Q6HR PRN #42 tab 07/06/21 [Rx] Sennosides/Docusate Sodium [Senna-S 8.6-50 mg Tablet] 1 each PO DAILY #30 tablet 07/06/21 [Rx] polyethylene glycoL 3350 [Miralax] 17 gm PO DAILY #21 packet 07/06/21 [Rx] Follow up Appointment(s)/Referral(s): Todd Chow DO [Primary Care Provider] - 07/11/21 8:50 am [facility], [NON-STAFF] - Selvin Caraballo DO [Doctor of Osteopathic Medicine] - 07/16/21 3:40 pm Activity/Diet/Wound Care/Special Instructions: Spine Discharge and Recovery Instructions Diagnosis: L1 AO A3 burst fracture Procedure: T11 to L2 posterior instrumentation with L1 kyphoplasty Medications: See list All medication refills should be obtained through your primary care doctor or your clinic spine surgeon. Please discuss prescription refills at your follow up appointment. Do not call the hospital for medication refills. Dressing: Leave your dressing in place for a total of 3 days post operatively. Then you may remove your dressing and leave open to air. Keep the area clean and if not able to keep area clean, then cover with sterile gauze and tape. Showering: You may shower 3 days after your procedure allowing soap and water to run over incision. Do not scrub. Do not soak. Blot dry. Brace: Wear TLSO brace when up and about no need to wear while showering or sleeping Follow up: Please confirm a follow up appointment with your surgeon 2 weeks post operatively. Please make an appointment to follow up with your PCP in 1-2 weeks after surgery for evaluation 3 phase, 3-week plan POST OP WEEKS 1-3 1. Lifting/carrying/pushing/pulling limited to less than 5 pounds. 2. Do not sit for longer than 15 minutes at one time. Get up and walk around. Prolonged sitting is NOT advised. If you lay down, see if you can tolerate laying down on you front (belly side) 3. Walk for periods of 15 minutes = 1 mile but no longer; do it multiple times times each day. 4.Ice your low back after activity. POST OP WEEKS 3-6 1. Lifting limited to less than 20 pounds. 2. Do not sit for longer than 30 minutes at a time. Frequently change positions. Use a sit-to stand workstation or take frequent breaks from sitting if you have returned to work. 3. Walk for 30 minutes each day. If possible, do these three or more times a day POST OP WEEKS 6+ At your 6-week appointment we will give you a physical therapy referral to focus on a core stabilization and strengthening program. You should also work on leg & buttock strengthening, hamstring & quadriceps stretching, and continue a low impact aerobic activity program such as swimming, walking, or riding a sta tionary bicycle. During the initial 6 weeks after your surgery, you are at the highest risk of re-injuring your spine. You should generally avoid BLTs (bending, lifting and twisting combination motions) and follow the above guidelines to reduce the chance of reinjury. You can anticipate post op appointments in our office at approximately 3 weeks and 6 weeks after your surgery. INCISION CARE: If your incision is not draining you do NOT need to cover it with a dressing. Keep your incision clean, dry and intact. In most cases, we apply skin glue, christian or sutures to the incision at the time of surgery. This will be like a crust or have the appearance of a scab and will fall off in time on its own. The stitches or christian need to be removed at 3 weeks post op appointment. You may begin to shower 3 days after surgery (this allows the glue to rodriguez well). However, please avoid scrubbing the incision site or peeling off any of the skin glue. This will ensure optimal healing of your incision. Also, during this time avoid soaking the incision area in water - this includes swimming pools, hot tubs or baths. No ointments, lotions or oils on the incision until your surgeon allows. Leave christian, sutures or glue in place. Neurological dysfunction that comes on suddenly can also be a sign of a stroke. Below some common symptoms of a stroke are listed: B - balance difficulty such as sudden onset walking or leaning to one side - NEW E - eye problem such as sudden double vision or trouble seeing on one side - NEW F - Facial weakness or numbness on one side - NEW A - Arm or leg weakness or numbness on one side - NEW S - Slurred speech or difficulty with word finding - NEW T - Time is BRAIN! Call 911 as soon as you recognize these symptoms Diet: Consume a regular diet rich in vegetables and lean protein such as chicken or fish. You should consume in a ratio of approximately 20% fats|40% carbohydrates|40%protein. Vegetables, sweet potatoes, brown rice or quinoa are examples of good carbohydrates. Chips, white bread, cookies and sweets/sugar are examples of bad carbohydrates. Limit your bad carbs, go wild with good carbs. "Life's Simple 7" Guidelines as per [place] [employer] These will help you reclaim your life after surgery and technician's helper in your recovery, keeping in mind your restrictions. (1) Get Active. Physical activity can help people lose weight, control high blood pressure and cholesterol, feel emotionally better, and sleep better. (2) Control Cholesterol. Avoid a diet high in saturated fat, trans fat, & cholesterol. Limit whole milk & cream, ice cream, butter, egg yolks, processed meats (like sausage and hot dogs), and fatty meats. Choose healthy foods that are low in saturated fat, trans fat and cholesterol which include: Fruits and vegetables, fiber rich grain products (like whole grain pasta and brown rice), lean meat such as chicken, fish, nuts, seeds, and legumes. (3) Eat Better. Eat small portions. Shop at the grocery with a list and do not stray from it. Tips for a healthy diet include: Limit sodium intake to less than 1500mg daily, avoid prepackaged, processed, and fast foods, choose a diet rich in fruits, vegetables, and whole grain, high fiber foods, and limit saturated & cholesterol in your diet. (4) Manage Blood Pressure. If you have high blood pressure, you should have a cuff at home so that you can check your blood pressure regularly. Be sure you have a good cuff. An arm one is generally better than a wrist one. Bring the cuff to a doctor's appointment to validate that the measurements that your cuff are taking are accurate. Take your blood pressure twice daily when you are sitting down and relaxing. Record the numbers in a log and bring this log with you to your doctors' appointments. (5) Lose Weight if your BMI is above 25. A healthy BMI is between 19-25. To calculate Your BMI, you may use a Standard BMI Calculator on the NIH BMI website: <www.nhlbi.nih.gov/guidelines/obesity/BMI/bmicalc.htm>. Weigh oneself daily. If you are overweight, set a goal to lose weight. A pound a week loss if needed is a good target. (6) Reduce Blood Sugar. Limit foods and liquids with "added sugars." (Added sugars include sucrose, fructose, glucose, maltose, dextrose, high fructose corn syrup, corn syrup, concentrated fruit juice and honey). (7) Stop Smoking. If you smoke, quitting smoking is one of the best things that you can do for your health. Smoking increases your risk of heart attack, stroke, and peripheral vascular disease, which is a build-up of plaque in your arteries. Please discard all the cigarettes and lighters in your house. Have a plan for what you will do when you have the urge to smoke. Direct and second- hand smoke shortens your life as well as the lives of your family, friends and others around you. For your health and the health of those around you, please consider quitting! Proper Bending Body Mechanics: Maintain a wide stance with one foot slightly in front of the other. Keep your back straight. Bend utilizing the strength in your hips and knees. Do not bend at the waist. Maintain the lifted object at your waist-level close to your body. Avoid lifting weight that causes immediately pain or pain anywhere in the body afterwards. Smoking/Nicotine If there was ever one thing that you could do to increase your overall health, decrease your risk of cardiovascular problems by about 39% the second you make the choice, it is to STOP SMOKING. Your body's most instant gratification is the second you stop smoking. We have all heard the studies, read the articles but it is true, smoking is extremely bad for your overall health, and moreover it is detrimental to your bone health. Nicotine, IN ANY FORM, kills bone cells, prevents your body from healing fractures, and significantly prolongs healing after surgery. In spine surgery specifically, it increases your risk of not healing your bones to create a fusion and increases your risk of having a revision surgery due to this up to 60%. I know it is hard. I know it feels impossible. But there are ways. Take control of your life. We are here to help you through it. And when you are ready, ask us and we can direct you to help if you desire. Use the START Plan to Quit Smoking (please visit the [employer].org website listed below for more information): S = Set a quit date. Choose a date within the next 2 weeks, so you have enough time to prepare without losing your motivation to quit. If you mainly smoke at work, quit on the weekend, so you have a few days to adjust to the change. T = Tell family, friends, and co-workers that you plan to quit. Let your friends and family in on your plan to quit smoking and tell them you need their support and encouragement to stop. Look for a quit susan who wants to stop smoking as well. You can help each other get through the rough times. A = Anticipate and plan for the challenges you'll face while quitting. Most people who begin smoking again do so within the first 3 months. You can help yourself make it through by preparing ahead for common challenges, such as nicotine withdrawal and cigarette cravings. R = Remove cigarettes and other tobacco products from your home, car, and work. Throw away all your cigarettes (no emergency pack!), lighters, ashtrays, and matches. Wash your clothes and freshen up anything that smells like smoke. Shampoo your car, clean your drapes and carpet, and steam your furniture. T = Talk to your doctor about getting help to quit. Your doctor can prescribe medication to help with withdrawal and suggest other alternatives. If you can't see a doctor, you can get many products over the counter at your local pharmacy or grocery store, including the nicotine patch, nicotine lozenges, and nicotine gum. Resources for Quitting Smoking: <https://w .[place].gov/documents/[facility]/Quit_Tobacco_Resources_for_patients_313480_[email or web address].pdf> Supplementation: Take recommended dosages of Vitamin D and Calcium to help fortify your bones and help them to heal. See your health maintenance packet for dosages and recommended levels. DVT/VTE prophylaxis: You will be given compression stockings from the hospital. Wear these daily for the first two weeks after surgery. You may take them off at night. You may be prescribed a medication to help thin your blood. Take this as directed. If you are not prescribed this medication, early and frequent ambulation has been shown to be the best prophylaxis to deep vein thrombosis and sequelae related to this event. Discharge Disposition: HOME WITH HOME HEALTH SERVICES
[2021-07-06] MEDS: polyethylene glycoL 3350 17 GM POWD.PACK PO SCH (09:11)
[2021-07-06] MEDS: NICOTINE 21MG/24HR PATCH TRANSDERM SCH (09:11)
[2021-07-06] MEDS: valACYclovir 500 MG TAB PO SCH (09:12)
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
[2021-07-06 11:38] LABS: Basophils # (A) 0.04 X 10*3/uL (0.00-0.10); Basophils % (A) 0.6 %; Eosinophils # (A) 0.12 X 10*3/uL (0.04-0.35); Eosinophils % (A) 1.8 %; HCT 33.2 % (39.6-50.0); HGB 11.2 g/dL (13.0-17.0); Lymphocytes # (A) 1.46 X 10*3/uL (0.90-5.00); Lymphocytes % (A) 22.5 %; MCH 33.6 pg (27.0-32.0); MCHC 33.7 g/dL (32.0-37.0); MCV 99.7 fL (80.0-97.0); Mean Platelet Volume 9.8 fL (9.5-12.2); Monocytes # (A) 0.54 X 10*3/uL (0.20-1.00); Monocytes % (A) 8.3 %; Neutrophils # (A) 4.32 X 10*3/uL (1.80-7.70); Neutrophils % (A) 66.6 %; Platelet Count 187 X 10*3/uL (140-440); RBC 3.33 X 10*6/uL (4.40-5.60); RDW 14.3 % (11.5-14.5); WBC 6.49 X 10*3/uL (4.50-10.00)
[2021-07-06 18:58] LABS: ALT <8 U/L (10-49); AST 19 U/L (14-35); African American GFR (CKD) 93.2 (60.0-200.0); Alkaline Phosphatase 89 U/L (41-126); BUN/Creat Ratio 11.11 Ratio (12.00-20.00); Calcium 8.7 mg/dL (8.7-10.3); Carbon Dioxide 26.5 mmol/L (21.6-31.8); Chloride 103 mmol/L (96-109); Globulin 2.7 g/dL (1.6-3.3); Glucose 85 mg/dL (70-110); Non-African American GFR(CKD) 80.4 (60.0-200.0); Potassium 3.8 mmol/L (3.5-5.5); Sodium 137 mmol/L (135-145); Total Bilirubin 0.8 mg/dL (0.3-1.2); Total Protein 6.2 g/dL (6.2-8.2)
== END 2021-07-06 12:00 | disposition home health service (06) ==
LOC: OR 06:22 → 4SSUR 13:51 → OR 07-04 13:37 → 4SSUR 07-04 13:42
PROVIDERS: ADMIT Orthopaedic Surgery; ATTEND Orthopaedic Surgery
DX: S32.011D Stable burst fracture of first lumbar vertebra, subsequent encounter for fracture with routine healing (principal); J44.9 Chronic obstructive pulmonary disease, unspecified; K21.9 Gastro-esophageal reflux disease without esophagitis; M47.816 Spondylosis without myelopathy or radiculopathy, lumbar region; F17.210 Nicotine dependence, cigarettes, uncomplicated; K59.00 Constipation, unspecified; L71.9 Rosacea, unspecified; N42.9 Disorder of prostate, unspecified; V86.55XD Driver of 3- or 4- wheeled all-terrain vehicle (ATV) injured in nontraffic accident, subsequent encounter; Z98.41 Cataract extraction status, right eye; Z98.42 Cataract extraction status, left eye; Z71.6 Tobacco abuse counseling; Z90.49 Acquired absence of other specified parts of digestive tract; Z79.899 Other long term (current) drug therapy
CPT/HCPCS: 22513; 22899; 94760; 97116; 97161; 97530; 97166; 86900; 86901; 80053 ×2; 85025 ×2; 86850; 72100; 72128; 72131; G0378 ×3; C1713; C1762; S4990 ×3; J2270; J2710; J0690 ×3; J2405; J2001; J3010; J1170 ×3; J0131; J2370; J0330; J2704; Q9966

== ENCOUNTER 2022-07-18 19:14 | Emergency (ER) | payer BC ==
--- NOTE | 2022-07-18 20:09 | XR ---
EXAMINATION TYPE: XR KUB DATE OF EXAM: 07/18/2022 COMPARISON: NONE HISTORY: Abdominal pain TECHNIQUE: Upright KUB view of the abdomen is obtained with 2 radiographs. FINDINGS: Small bowel demonstrates no evidence for dilatation or air fluid levels. Gas and fecal material is seen in non-distended colon. No convincing evidence for pneumoperitoneum. No unusual calcifications. Vascular sclerosis. Redemonstration of lucency of the lungs with prominent perihilar interstitial markings. The osseous structures are intact. Posterior fusion changes of the thoracolumbar spine with bilateral pedicular screws and rods and vertebral augmentation. IMPRESSION: 1. Overall nonobstructive bowel gas pattern. 2. COPD changes.
[2022-07-18 21:52] LABS: Basophils % (A) 1 %; Eosinophils % (A) 0 %; HCT 35.5 % (39.0-53.0); HGB 11.7 gm/dL (13.0-17.5); Lymphocytes # (A) 0.9 k/uL (1.0-4.8); Lymphocytes % (A) 20 %; MCH 31.7 pg (25.0-35.0); MCHC 32.8 g/dL (31.0-37.0); MCV 96.5 fL (80.0-100.0); Mean Platelet Volume 7.6; Monocytes # (A) 0.4 k/uL (0-1.0); Monocytes % (A) 9 %; Neutrophils # (A) 3.1 k/uL (1.3-7.7); Neutrophils % (A) 67 %; Platelet Count 232 k/uL (150-450); RBC 3.68 m/uL (4.30-5.90); RDW 14.6 % (11.5-15.5); WBC 4.7 k/uL (3.8-10.6)
[2022-07-18 21:55] LABS: ALT 24 U/L (4-49); African American GFR (CKD) >90 (>60 ml/min/1.73 sqM); Albumin 3.3 g/dL (3.5-5.0); Amylase 58 U/L (30-110); Anion Gap 11 mmol/L; Blood Urea Nitrogen 20 mg/dL (9-20); Calcium 8.5 mg/dL (8.4-10.2); Carbon Dioxide 22 mmol/L (22-30); Chloride 96 mmol/L (98-107); Glucose 88 mg/dL (74-99); Lipase 34 U/L (23-300); Non-African American GFR(CKD) >90 (>60 ml/min/1.73 sqM); Sodium 129 mmol/L (137-145); Total Bilirubin 0.7 mg/dL (0.2-1.3); Total Protein 6.9 g/dL (6.3-8.2)
[2022-07-18 21:57] LABS: AST 29 U/L (17-59); Alkaline Phosphatase 203 U/L (38-126); Potassium 4.5 mmol/L (3.5-5.1)
[2022-07-19] MEDS ORDERED: SODIUM CHLORIDE 0.9% 2,000 ML IV ONE (00:11)
[2022-07-19] MEDS ORDERED: KETOROLAC 15 MG/ML 1 ML VIAL IVP STA (00:11)
[2022-07-19 01:32] LABS: Appearance,Urine Clear (Clear); Bilirubin,Urine Negative (Negative); Blood,Urine Negative (Negative); Color,Urine Yellow; Glucose,Urine (UA) Negative (Negative); Ketones,Urine Negative (Negative); Leukocyte Esterase,Urine Negative (Negative); Nitrite,Urine Negative (Negative); PH, Urine 5.5 (5.0-8.0); Protein,Urine Trace (Negative); Urobilinogen,Urine <2.0 mg/dL (<2.0)
--- NOTE | 2022-07-19 01:33 | CT ---
EXAMINATION TYPE: CT abdomen pelvis w con DATE OF EXAM: 07/19/2022 COMPARISON: None HISTORY: Abd pain CT DLP: 615.2 mGycm Automated exposure control for dose reduction was used. CONTRAST: Performed with IV Contrast, patient injected with 100 mL of Isovue 300. There is coarse infiltrate in the right lower lobe. There is bullous pulmonary emphysema. Heart size is normal. No pericardial effusion. There are scattered cysts in the liver that measure up to 1.5 cm. Spleen is intact. The stomach is in tact. No evidence of pancreatic mass. The bile ducts are not dilated. Gallbladder is contracted. There is no adrenal mass. Kidneys show satisfactory contrast opacification. There is no hydronephrosi s. Delayed images show normal renal excretion. No retroperitoneal adenopathy. Abdominal aorta is athe romatous. Bladder distends smoothly. Prostate is enlarged and measures 5 cm. No inguinal hernia. No f ree fluid in the pelvis. No pelvic mass. There is compression deformities of L2 L1 and T11 vertebra with vertebroplasty. There is posterior fu gael surgery at the thoracolumbar junction. This is seen from L2 to T11 vertebra. The bony pelvis is intact. The hip joints are intact. Sacroiliac joints are intact. No mesenteric edema. No ascites or free air. No sign of a bowel obstruction. Appendix not seen. IMPRESSION: Bullous pulmonary emphysema. Scarring and patchy airspace infiltrate at the right lung base. Normal h eart. There is improvement in the infiltrate at the left posterior lung base compared to spinal CT sc an of 07/03/2021. There is also some improvement at the right lung base. Atherosclerotic vascular disease. No acute abnormality within the abdomen and pelvis. Compression fra ctures in the spine are stable compared to CT scan of 07/03/2021.
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
[2022-07-19 02:43] VITALS: BP 111/88; PULSE 78; RESP 24; TEMP 98.3
== END 2022-07-19 02:43 | disposition home or self-care (01) ==
LOC: EC 19:14
DX: R10.84 Generalized abdominal pain (principal); J44.1 Chronic obstructive pulmonary disease with (acute) exacerbation; F17.200 Nicotine dependence, unspecified, uncomplicated
CPT/HCPCS: 99284 ×2; 96374 ×2; 96361 ×2; 36415; 93005; 80053; 82150; 83690; 85025; 81003; 74018; 74177; J1885; Q9967

== ENCOUNTER 2022-07-20 22:07 | Inpatient (IN) | payer BC ==
[2022-07-20] MEDS ORDERED: SODIUM CHLORIDE 0.9% 500 ML 500 ML IV STA (22:30)
[2022-07-20] MEDS ORDERED: ACETAMINOPHEN TAB 325 MG TAB PO STA (22:30)
[2022-07-20 23:16] LABS: Basophils % (A) 1 %; Eosinophils % (A) 0 %; HCT 33.7 % (39.0-53.0); HGB 11.1 gm/dL (13.0-17.5); Lymphocytes # (A) 0.7 k/uL (1.0-4.8); Lymphocytes % (A) 14 %; MCH 31.5 pg (25.0-35.0); MCHC 32.9 g/dL (31.0-37.0); MCV 95.6 fL (80.0-100.0); Mean Platelet Volume 8.3; Monocytes # (A) 0.4 k/uL (0-1.0); Monocytes % (A) 7 %; Neutrophils % (A) 76 %; Platelet Count 187 k/uL (150-450); RBC 3.53 m/uL (4.30-5.90); RDW 14.8 % (11.5-15.5); WBC 5.2 k/uL (3.8-10.6)
[2022-07-20 23:28] LABS: Appearance,Urine Clear (Clear); Bilirubin,Urine Negative (Negative); Blood,Urine Negative (Negative); Color,Urine Yellow; Glucose,Urine (UA) Negative (Negative); Ketones,Urine Negative (Negative); Leukocyte Esterase,Urine Negative (Negative); Nitrite,Urine Negative (Negative); PH, Urine 6.5 (5.0-8.0); Protein,Urine Trace (Negative); Specific Gravity,Urine 1.017 (1.001-1.035)
[2022-07-20 23:34] LABS: ALT 17 U/L (4-49); AST 22 U/L (17-59); African American GFR (CKD) >90 (>60 ml/min/1.73 sqM); Albumin 2.9 g/dL (3.5-5.0); Alkaline Phosphatase 181 U/L (38-126); Anion Gap 12 mmol/L; Blood Urea Nitrogen 20 mg/dL (9-20); C Reactive Protein 7.7 mg/dL (<1.0); Carbon Dioxide 23 mmol/L (22-30); Chloride 94 mmol/L (98-107); Glucose 102 mg/dL (74-99); Non-African American GFR(CKD) 88 (>60 ml/min/1.73 sqM); Potassium 3.9 mmol/L (3.5-5.1); Sodium 129 mmol/L (137-145); Total Bilirubin 0.7 mg/dL (0.2-1.3); Total Protein 6.4 g/dL (6.3-8.2)
--- NOTE | 2022-07-20 23:38 | XR ---
EXAMINATION TYPE: XR chest 2V DATE OF EXAM: 07/20/2022 COMPARISON: 06/17/2022 HISTORY: Short of breath TECHNIQUE: FINDINGS: There is coarse interstitial density in the lungs. There is some coalescent density right l ower lobe. Heart size is normal. No heart failure. There is pulmonary emphysema. There is thoracolumb ar spine fusion surgery. IMPRESSION: Right lower lobe infiltrate appears new compared to old exam. There is COPD and pulmonary fibrosis.
[2022-07-20] MEDS ORDERED: AZITHROMYCIN 500 MG TAB PO STA (23:54)
[2022-07-21] MEDS ORDERED: PNEUMONIA PROTOCOL UTILIZED 1 EACH MISC PO PRN (00:34)
[2022-07-21] MEDS ORDERED: ALBUTEROL NEBULIZED 2.5 MG/3 ML INHALATION PRN (00:34)
[2022-07-21] MEDS: SODIUM CHLORIDE 0.9% 1,000 ML IV SCH ×3 (02:02→20:32)
[2022-07-21] MEDS: IPRATROPIUM-ALBUTEROL 3 ML NEB INHALATION SCH ×5 (03:25→19:11)
[2022-07-21 03:29] LABS: Glucose,Whole Blood 104 mg/dL (70-110)
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
[2022-07-21] MEDS ORDERED: methylPREDNISolone SOD SUCCI 125 MG/2 ML VIAL IV STA (03:50)
[2022-07-21 03:57] LABS: ABG Base Excess -8.9 mmol/L; ABG HCO3 18 mmol/L (21-25); ABG PCO2 40 mmHg (35-45); ABG PH 7.27 (7.35-7.45); ABG PO2 349 mmHg (83-108); ABG TCO2 19 mmol/L (19-24); Allen Test Performed? Yes
[2022-07-21] MEDS ORDERED: DEXTROSE 50% SYRINGE 50 ML IVP PRN ×2 (04:26)
[2022-07-21] MEDS: LORazepam 1 MG/0.5 ML VIAL IV PRN (04:36)
[2022-07-21 06:05] LABS: Glucose,Whole Blood 182 mg/dL (70-110)
[2022-07-21] MEDS: INSULIN ASPART (NovoLOG) 100 UNIT/ML VIAL SQ SCH ×4 (06:20→20:40)
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
[2022-07-21] MEDS: methylPREDNISolone SOD SUCCI 125 MG/2 ML VIAL IV SCH ×3 (09:11→20:39)
[2022-07-21] MEDS: HEPARIN SODIUM,PORCINE/PF 5,000 UNIT/0.5 ML SYRINGE SQ SCH ×2 (09:11→20:40)
[2022-07-21] MEDS: FAMOTIDINE 20 MG/2 ML VIAL IV SCH ×2 (09:11→20:40)
[2022-07-21 12:11] LABS: Glucose,Whole Blood 216 mg/dL (70-110)
[2022-07-21] MEDS: AZITHROMYCIN 500 MG TAB PO SCH (12:39)
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
[2022-07-21 13:22] LABS: ABG Base Excess -4.1 mmol/L; ABG HCO3 20 mmol/L (21-25); ABG PCO2 27 mmHg (35-45); ABG PH 7.47 (7.35-7.45); ABG PO2 63 mmHg (83-108); ABG TCO2 21 mmol/L (19-24); Allen Test Performed? Yes
[2022-07-21 17:22] LABS: Glucose,Whole Blood 180 mg/dL (70-110)
[2022-07-21 20:30] LABS: Glucose,Whole Blood 187 mg/dL (70-110)
[2022-07-22] MEDS: methylPREDNISolone SOD SUCCI 125 MG/2 ML VIAL IV SCH ×4 (03:03→20:21)
[2022-07-22 06:07] LABS: Glucose,Whole Blood 153 mg/dL (70-110)
[2022-07-22] MEDS: SODIUM CHLORIDE 0.9% 1,000 ML IV SCH ×2 (06:35→12:54)
[2022-07-22] MEDS: INSULIN ASPART (NovoLOG) 100 UNIT/ML VIAL SQ SCH ×4 (06:36→20:15)
[2022-07-22] MEDS: IPRATROPIUM-ALBUTEROL 3 ML NEB INHALATION SCH ×4 (08:27→20:18)
[2022-07-22] MEDS: FAMOTIDINE 20 MG TAB PO SCH ×2 (09:09→20:21)
[2022-07-22] MEDS: AZITHROMYCIN 500 MG TAB PO SCH (09:09)
[2022-07-22] MEDS: HEPARIN SODIUM,PORCINE/PF 5,000 UNIT/0.5 ML SYRINGE SQ SCH ×2 (09:09→20:21)
[2022-07-22 11:52] LABS: Glucose,Whole Blood 166 mg/dL (70-110)
--- NOTE | 2022-07-22 12:40 | CA ---
Transthoracic Echo Report Name: Bertin Joyner Age: 81 Gender: M : 1940 Exam Date: 07/22/2022 09:02 Exam Location: Mobile Echo Ht (in): 66 Wt (lb): 105 Ordering Physician: Anai Newman Attending/Referring Phys: Cook Fruit Radha Goddard RDCS Procedure CPT: Indications: rule out CHF Cardiac Hx: Technical Quality: Fair Contrast 1: Total Dose (mL): Contrast 2: Total Dose (mL): MEASUREMENTS (Male / Female) Normal Values 2D ECHO LV Diastolic Diameter PLAX 3.2 cm 4.2 - 5.9 / 3.9 - 5.3 cm LV Systolic Diameter PLAX 2.5 cm IVS Diastolic Thickness 1.0 cm 0.6 - 1.0 / 0.6 - 0.9 cm LVPW Diastolic Thickness 1.0 cm 0.6 - 1.0 / 0.6 - 0.9 cm LV Relative Wall Thickness 0.6 LA Volume 41.1 cm??? 18 - 58 / 22 - 52 cm??? M-MODE Aortic Root Diameter MM 3.2 cm LA Systolic Diameter MM 4.2 cm LA Ao Ratio MM 1.3 AV Cusp Separation MM 2.0 cm DOPPLER AV Peak Velocity 88.8 cm/s AV Peak Gradient 3.2 mmHg LVOT Peak Velocity 74.3 cm/s LVOT Peak Gradient 2.2 mmHg MV Area PHT 3.8 cm??? Mitral E Point Velocity 77.5 cm/s Mitral A Point Velocity 79.8 cm/s Mitral E to A Ratio 1.0 MV Deceleration Time 198.0 ms FINDINGS Left Ventricle Left ventricular cavity size normal. Left ventricular wall thickness normal. Hypokinetic septum. Left ventricular ejection fraction is estimated at 40-45 %. Right Ventricle Normal right ventricular size and function. Right Atrium Normal right atrial size. Left Atrium Normal left atrial size. Mitral Valve Severe mitral annular calcification. Mild mitral regurgitation. Aortic Valve No aortic stenosis. No aortic regurgitation. Tricuspid Valve Mild tricuspid regurgitation. Pulmonic Valve Structurally normal pulmonic valve. Pericardium No pericardial effusion. Aorta Normal size aortic root and proximal ascending aorta. CONCLUSIONS Mildly impaired LV function was EF between 40-45% Previewed by: Dr. Scar Bledsoe MD (Electronically Signed) Final Date: 22 July 2022 12:39
[2022-07-22 16:35] LABS: Glucose,Whole Blood 175 mg/dL (70-110)
--- NOTE | 2022-07-22 16:41 | P.PN ---
Subjective Progress Note Date: 07/22/22 Principal diagnosis: Acute right lower lobe pneumonia and acute exacerbation of COPD 81-year-old male patient with advanced COPD. The patient is very much hard of hearing is very difficult to communicate with the patient. He also has underlying dementia. The patient came into the hospital because of worsening shortness of breath. Currently he is on BiPAP at a pressure of 10/5 cm of water and FiO2 has been drop down to 30%. The patient was placed on BiPAP yesterday and he was kept on BiPAP throughout the night. As mentioned, extremely difficult to communicate with the patient. In summary, the patient came in with worsening shortness of breath. Chest x-ray showed emphysema with hyperinflation and right lower lobe consolidation consistent for an underlying pneumonia. Based on that, the patient was started on examination Rocephin and Zithromax. The patient was started on IV fluids. The patient was also started on IV Solu- Medrol and following that the patient was admitted to the medical floor. A CAT scan of the abdomen and pelvis was done and the patient had some vague abdominal pain and it showed right lower lobe consolidation and some bullous changes in the lungs. No evidence of any scarring or fibrosis. The patient's white cell count was 5.2 with a hemoglobin of 11. Blood gases from yesterday showed a pH of 7.27 with a pCO2 of 40 and pO2 of 349 and this was on FiO2 of 40%. Unsure if this was done on a BiPAP. Sodium level is at 129 with a potassium level of 3. and BUN of 25th of 0.7. Glucose 216. COVID 19 testing was negative and UA was also negative. Reevaluated today on 07/22/22 patient is feeling a bit better, he is on 2 L nasal cannula with O2 sats is 95%. Does not seem to be in any distress. ABG on admission showed a pO2 of 63 pCO2 27 pH of 7.47, WBC count 5.2 hemoglobin 11 point chest x-ray showed right lower lobe infiltrate and underlying COPD with possible interstitial lung disease echocardiogram showed mild LV dysfunction with ejection fraction of 40-45% patient is on Rocephin and Zithromax. He is also on bronchodilators for underlying COPD normally takes a breztri at home. Objective - Vital Signs Vital signs: Vital Signs Temp 97.0 F L 07/22/22 08:57 Pulse 92 09/26/22 16:17 Resp 18 07/22/22 15:48 BP 88/46 07/22/22 12:13 Pulse Ox 95 07/22/22 12:13 FiO2 40 07/21/22 08:35 Intake & Output 07/21/22 07/22/22 07/22/22 18:59 06:59 18:59 Intake Total 180 580 Output Total 525 100 Balance 180 -525 480 Intake: Intake, IV Titration 400 Amount Sodium Chloride 0.9% 1, 400 000 ml @ 100 mls/hr IV . Q10H [facility] Rx#:[id number] Oral 180 180 Output: Urine 525 100 Other: Voiding Method Urinal Urinal Urinal Diaper Diaper # Voids 2 # Bowel Movements 1 - Exam General: Revealed 81-year-old white male on 2 L nasal cannula, in no distress Head: Atraumatic, normocephalic. Eyes: EOMs intact, no lid lag, and anicteric sclera Mouth: Moist mucous membranes Cardiovascular: regular rate and rhythm with normal S1S2, no murmur Lungs: Fine crackles at the bases no rhonchi and no wheezes Abdominal: soft, nontender to palpation, no guarding, no appreciable organomegaly Ext: No clubbing edema or cyanosis Neuro: Alert oriented 3 focal deficit Psych: Normal mood affect and normal mental status examination. - Labs CBC & Chem 7: 07/20/22 23:00 07/20/22 23:00 Labs: Abnormal Lab Results - Last 24 Hours (Table) 07/21/22 07/21/22 07/22/22 Range/Units 17:03 20:28 06:06 POC Glucose (mg/dL) 180 H 187 H 153 H (70-110) mg/dL 07/22/22 07/22/22 Range/Units 11:51 16:29 POC Glucose (mg/dL) 166 H 175 H (70-110) mg/dL Microbiology - Last 24 Hours (Table) 07/20/22 23:00 Blood Culture - Preliminary Blood No Growth after 24 hours Assessment and Plan Assessment: Impression: Acute on chronic hypoxic respiratory failure secondary to acute exacerbation of COPD and acute community-acquired the right lower lobe pneumonia History of underlying COPD Chronic hypoxic respiratory failure Mild dementia History of compression fracture of lumbar spine Tobacco dependence syndrome Recommendation: Continue oxygen Use BiPAP at bedside if necessary Continue bronchodilators Continue Rocephin and Zithromax We will continue to follow Time with Patient: Less than 30
[2022-07-22 20:16] LABS: Glucose,Whole Blood 141 mg/dL (70-110)
--- NOTE | 2022-07-22 21:25 | P.PN ---
Subjective Progress Note Date: 07/22/22 Patient seen today still with shortness of breath suffering from hypoxic respiratory failure with end-stage COPD. He did show some underlying pneumonia which she is currently on antibiotics for. He stated that he had a pretty rough weekend with shortness of breath. Objective - Vital Signs Vital signs: Vital Signs Temp 97.0 F L 07/22/22 08:57 Pulse 95 07/22/22 20:40 Resp 18 07/22/22 17:10 BP 99/48 07/22/22 17:10 Pulse Ox 98 07/22/22 20:18 FiO2 40 07/21/22 08:35 Intake & Output 07/22/22 07/22/22 07/23/22 06:59 18:59 06:59 Intake Total 1460 Output Total 525 100 Balance -525 1360 Intake: Intake, IV Titration 1100 Amount Sodium Chloride 0.9% 1, 1100 000 ml @ 100 mls/hr IV . Q10H [facility] Rx#:[id number] Oral 360 Output: Urine 525 100 Other: Voiding Method Urinal Urinal Diaper Diaper - Exam GENERAL: This is a 81-year-old . Pleasant and cooperative. HEENT: Head is atraumatic, normocephalic. Pupils are equal, round, and reactive to light. Sclerae anicteric. Conjunctivae are clear. Mucus membranes of the mouth are moist. Neck is supple. RESPIRATORY: Decreased respirations bilateral with auditory wheezing and poor air exchange heard throughout crackles in the bases bilateral. CARDIOVASCULAR: Tachycardia with systolic murmur barely audible. GASTROINTESTINAL: No distention noted. Abdomen soft and round. Normal active bowel sounds auscultated x 4 quadrants. No pain or tenderness noted upon palpation. INTEGUMENTARY: No cyanosis. No jaundice. No rashes noted. No cellulitis noted. EXTREMITIES: 2+ peripheral pulses. No evidence of peripheral edema. No calf tenderness noted. NEUROLOGIC: Cranial nerves II-XII intact. PSYCHIATRIC: Awake, alert, and oriented X 3. Appropriate affect. Intact judgement and insight. - Labs CBC & Chem 7: 07/20/22 23:00 07/20/22 23:00 Labs: Abnormal Lab Results - Last 24 Hours (Table) 07/22/22 07/22/22 07/22/22 Range/Units 06:06 11:51 16:29 POC Glucose (mg/dL) 153 H 166 H 175 H (70-110) mg/dL 07/22/22 Range/Units 20:15 POC Glucose (mg/dL) 141 H (70-110) mg/dL Microbiology - Last 24 Hours (Table) 07/20/22 23:00 Blood Culture - Preliminary Blood No Growth after 24 hours Assessment and Plan (1) Acute and chronic respiratory failure with hypoxia Current Visit: Yes Status: Acute Code(s): J96.21 - ACUTE AND CHRONIC RESPIRATORY FAILURE WITH HYPOXIA SNOMED Code(s): 85788306 (2) Acute exacerbation of chronic obstructive pulmonary disease (COPD) Current Visit: Yes Status: Acute Code(s): J44.1 - CHRONIC OBSTRUCTIVE PULMONARY DISEASE W (ACUTE) EXACERBATION SNOMED Code(s): 804552095 (3) Pneumonia Current Visit: Yes Status: Acute Code(s): J18.9 - PNEUMONIA, UNSPECIFIED ORGANISM SNOMED Code(s): 605032186 Plan: Patient continues to do poorly with his lung function he was using BiPAP at night and he continues with pulmonary maximum treatment. We have him on IV antibiotics to cover his pneumonia and we'll see how his progress is over the next 24-36 hours
[2022-07-23 00:25] LABS: Glucose,Whole Blood 179 mg/dL (70-110)
[2022-07-23] MEDS ORDERED: FUROSEMIDE 10 MG/ML 4 ML VIAL IV STA ×2 (00:26→12:09)
[2022-07-23] MEDS: LORazepam 1 MG/0.5 ML VIAL IV PRN (00:32)
--- NOTE | 2022-07-23 00:56 | XR ---
EXAMINATION TYPE: XR chest 1V portable DATE OF EXAM: 07/23/2022 COMPARISON: 07/20/2022 HISTORY: Respiratory distress TECHNIQUE: 2 views FINDINGS: Heart size is normal. No obvious heart failure. There is extensive coarse interstitial and airspace infiltrates in the lung solorzano. There is emphysema in the upper lung solorzano. No definite ple ural effusion. IMPRESSION: Extensive bilateral pulmonary infiltrates which are increased compared to recent exam and consistent with pneumonia or RDS. There is underlying pulmonary emphysema.
[2022-07-23] MEDS: SODIUM CHLORIDE 0.9% 1,000 ML IV SCH (03:30)
[2022-07-23] MEDS: methylPREDNISolone SOD SUCCI 125 MG/2 ML VIAL IV SCH ×3 (03:32→16:07)
[2022-07-23 06:21] LABS: Glucose,Whole Blood 149 mg/dL (70-110)
[2022-07-23] MEDS: INSULIN ASPART (NovoLOG) 100 UNIT/ML VIAL SQ SCH ×2 (06:26→16:06)
[2022-07-23 07:53] VITALS: BMI 16.9
[2022-07-23] MEDS: IPRATROPIUM-ALBUTEROL 3 ML NEB INHALATION SCH ×2 (08:19→11:44)
[2022-07-23] MEDS: HEPARIN SODIUM,PORCINE/PF 5,000 UNIT/0.5 ML SYRINGE SQ SCH (10:38)
[2022-07-23] MEDS: FAMOTIDINE 20 MG TAB PO SCH (10:38)
[2022-07-23 11:58] LABS: Glucose,Whole Blood 210 mg/dL (70-110)
[2022-07-23 12:10] VITALS: BP 104/57; PULSE 90; RESP 20; TEMP 96.9
--- NOTE | 2022-07-23 14:56 | P.PN ---
Subjective Progress Note Date: 07/23/22 Principal diagnosis: Acute pneumonia, COPD exacerbation 81-year-old male patient with advanced COPD. The patient is very much hard of hearing is very difficult to communicate with the patient. He also has underlying dementia. The patient came into the hospital because of worsening shortness of breath. Currently he is on BiPAP at a pressure of 10/5 cm of water and FiO2 has been drop down to 30%. The patient was placed on BiPAP yesterday and he was kept on BiPAP throughout the night. As mentioned, extremely difficult to communicate with the patient. In summary, the patient came in with worsening shortness of breath. Chest x-ray showed emphysema with hyperinflation and right lower lobe consolidation consistent for an underlying pneumonia. Based on that, the patient was started on examination Rocephin and Zithromax. The patient was started on IV fluids. The patient was also started on IV Solu- Medrol and following that the patient was admitted to the medical floor. A CAT scan of the abdomen and pelvis was done and the patient had some vague abdominal pain and it showed right lower lobe consolidation and some bullous changes in the lungs. No evidence of any scarring or fibrosis. The patient's white cell count was 5.2 with a hemoglobin of 11. Blood gases from yesterday showed a pH of 7.27 with a pCO2 of 40 and pO2 of 349 and this was on FiO2 of 40%. Unsure if this was done on a BiPAP. Sodium level is at 129 with a potassium level of 3. and BUN of 25th of 0.7. Glucose 216. COVID 19 testing was negative and UA was also negative. Reevaluated today on 07/22/22 patient is feeling a bit better, he is on 2 L nasal cannula with O2 sats is 95%. Does not seem to be in any distress. ABG on admission showed a pO2 of 63 pCO2 27 pH of 7.47, WBC count 5.2 hemoglobin 11 point chest x-ray showed right lower lobe infiltrate and underlying COPD with possible interstitial lung disease echocardiogram showed mild LV dysfunction with ejection fraction of 40-45% patient is on Rocephin and Zithromax. He is also on bronchodilators for underlying COPD normally takes a breztri at home. The patient is seen today 07/23/2022 in follow-up on the selective care unit. He is currently sitting up in bed. Awake and alert in no acute distress. He is currently on BiPAP 10/5 and 50% FiO2 and alternating with oxygen at 2 L/m per nasal cannula. Chest x-ray shows some worsening bilateral infiltrates more so on the right lung. Blood culture reveals no growth. No new labs today. He is continued on ceftriaxone. Remains on DuoNeb inhalations, IV Solu-Medrol, heparin for DVT prophylaxis. Objective - Vital Signs Vital signs: Vital Signs Temp 96.9 F L 07/23/22 12:03 Pulse 90 07/23/22 12:03 Resp 20 07/23/22 12:03 BP 104/57 07/23/22 12:03 Pulse Ox 94 L 07/23/22 12:03 FiO2 80 07/23/22 04:19 Intake & Output 07/22/22 07/23/22 07/23/22 18:59 06:59 18:59 Intake Total 1460 180 Output Total 100 900 Balance 1360 -900 180 Weight 47.627 kg Intake: Intake, IV Titration 1100 Amount Sodium Chloride 0.9% 1, 1100 000 ml @ 100 mls/hr IV . Q10H [facility] Rx#:[id number] Oral 360 180 Output: Urine 100 900 Other: Voiding Method Urinal External Catheter External Catheter Diaper # Voids 1 - Exam General: A pleasant 81-year-old male patient, no distress and appears stated age. Very thin build. The patient was wearing a BiPAP at 10/5 and 50% FiO2, alternating with oxygen at 2 L/m per nasal cannula and the patient is comfortable. No respiratory difficulties. Nares of accessory muscles of breathing. Derm: Skin warm and dry, normal coloration for ethnicity. Head: Atraumatic, normocephalic and symmetric. Eyes: EOMs intact, no lid lag, and anicteric sclera Mouth: no lip lesions, mucus membranes moist Cardiovascular: regular rate and rhythm with normal S1S2, no murmur Lungs: Bilateral scattered rhonchi, diminished Abdominal: soft, nontender to palpation, no guarding, no appreciable organomegaly Ext: ROM intact. No gross muscle atrophy, no edema Neuro: Speech clear, face symmetrical and CN II-XII grossly intact with no noted focal neuro deficits Psych: Unable to obtain - Labs CBC & Chem 7: 07/20/22 23:00 07/20/22 23:00 Labs: Abnormal Lab Results - Last 24 Hours (Table) 07/22/22 07/22/22 07/22/22 Range/Units 14:21 16:29 20:15 POC Glucose (mg/dL) 175 H 141 H (70-110) mg/dL Procalcitonin 5.05 H (0.02-0.09) ng/mL 07/23/22 07/23/22 07/23/22 Range/Units 00:24 06:18 11:56 POC Glucose (mg/dL) 179 H 149 H 210 H (70-110) mg/dL Procalcitonin (0.02-0.09) ng/mL Microbiology - Last 24 Hours (Table) 07/20/22 23:00 Blood Culture - Preliminary Blood No Growth after 48 hours Assessment and Plan Assessment: Acute COPD exacerbation secondary to right lower lobe pneumonia. The patient was quite short of breath and hypoxic initially placed on a BiPAP with improvement. Blood gases were noted and there is essentially component of metabolic acidosis. No significant history acidosis. No significant hypoxemia. Today's chest x-ray showing worsening density in the right lung with some increased infiltrates bilaterally. Antibiotics changed to Zosyn. Chronic hypoxic respiratory failure Dementia Hard of hearing History of compression fracture of the lumbar spine. The patient was in the hospital last year following a T11 to L2 posterior instrumentation and stabilization with L1 kyphoplasty. Smoker Plan The patient was seen and evaluated Chest x-ray reviewed and shows worsening bilateral infiltrates Antibiotics changed to Zosyn Lasix 40 mg IVP 1 Titrate the FiO2 as tolerated Continue BiPAP as needed Follow-up chest x-ray in the a.m. We will continue to follow I have personally seen and examined the patient, performed the documentation and the assessment and plan as written. Number of minutes spent on the visit: 10.
--- NOTE | 2022-07-23 15:20 | CDI ---
Documentation Clarification Form Date: 07/23/2022 03:04:24 PM From: Inocencia Lowry RN, CCDS Admit Date: 07/21/2022 12:34:00 AM Patient Name: Bertin Joyner Visit Number: [id number] Discharge Date: ATTENTION: The Clinical Documentation Specialists (CDI) and [facility] Coding Staff appreciate your assistance in clarifying documentation. Please respond to the clarification below the line at the bottom and electronically sign. The CDI & [facility] Coding staff will review the response and follow-up if needed. Please note: Queries are made part of the Legal Health Record. If you have any questions, please contact the author of this message via ITS. Dr. Todd Chow Malnutrition severe, chronic is documented in the nutritional assessment. Additional clarification regarding the severity of malnutrition is requested. History/Risk Factors: Pneumonia, COPD Alzheimer's, nicotine dependence Clinical Indicators: 81-year-old male with history of poor appetite greater than 6 months. He has difficulty chewing and swallowing. Current BMI: 16.9 Insufficient energy intake: Yes Weight Loss: Yes Loss of subcutaneous fat: Emaciated, severe fat and muscle loss and 22% weight loss of UBW Severe depletion on buccal fat pads, temporalis, pectoralis major, deltoid, trapezius and interosseous muscle Decreased hand household coordinator strength: RD Consult Assessment: severe malnutrition Treatment: Dietary Consult: Yes Supplements: Ensure compact TID Monitor I/O Please clarify the type of malnutrition, if known: [ ] Mild Protein-Calorie Malnutrition [ ] Moderate Protein-Calorie Malnutrition [ ] Severe Protein-Calorie Malnutrition [ ] Other condition, please specify [ ] Unable to Determine (Template Last Revised: December 2020) Moderate protein calorie malnutrition, multifactorial ,secondary to advanced COPD, dementia Dictated By: Surekha Lorenzo Signed By: <Electronically signed by Surekha CAO> 07/24/22 1625 <Electronically signed by Todd Chow DO> 07/24/22 3095 <Electronically signed by Todd Chow DO> MTDD
[2022-07-23] MEDS ORDERED: PIPERACILLIN-TAZOBACTAM 3.375 GM in SODIUM CHLORIDE 0.9% 100 ML IVPB SCH (16:00)
--- NOTE | 2022-07-23 18:41 | P.PN ---
Subjective Progress Note Date: 07/23/22 This is an 81-year-old gentleman admitted with acute hypoxic respiratory failure, secondary to end-stage COPD, pneumonia and multiple other medical issues. Chest x-ray yesterday reporting extensive bilateral pulmonary infiltrates increased. Maintained on nebulized bronchodilators, IV steroids, with antibiotics adjusted, converted to Zosyn. Currently on 2 L nasal cannula, maintaining O2 sats in the 90s. Reports minimal nonproductive cough. Afebrile. Blood cultures reporting no growth at 48 hours. Reports son is looking at an AFC, currently declining home care. Objective - Vital Signs Vital signs: Vital Signs Temp 96.9 F L 07/23/22 12:03 Pulse 90 07/23/22 14:00 Resp 20 07/23/22 14:00 BP 104/57 07/23/22 12:03 Pulse Ox 94 L 07/23/22 12:03 FiO2 80 07/23/22 04:19 Intake & Output 07/22/22 07/23/22 07/23/22 18:59 06:59 18:59 Intake Total 1460 180 Output Total 100 900 Balance 1360 -900 180 Weight 47.627 kg Intake: Intake, IV Titration 1100 Amount Sodium Chloride 0.9% 1, 1100 000 ml @ 100 mls/hr IV . Q10H [facility] Rx#:[id number] Oral 360 180 Output: Urine 100 900 Other: Voiding Method Urinal External Catheter External Catheter Diaper # Voids 1 - Exam - Exam GENERAL: Alert and oriented 2, sitting up in bed, Pleasant and cooperative. HEENT: Head is atraumatic, normocephalic. Pupils are equal, round, and reactive to light. Sclerae anicteric. Conjunctivae are clear. Neck is supple. RESPIRATORY: Decreased respirations bilateral,poor air exchange heard throughout , diminished with scattered rhonchi CARDIOVASCULAR: S1 and S2, regular, systolic murmur barely audible. GASTROINTESTINAL: No distention noted. Abdomen soft and round. Normal active bowel sounds auscultated x 4 quadrants. No pain or tenderness noted upon palpation. INTEGUMENTARY: No cyanosis. No jaundice. No rashes noted. No cellulitis noted. EXTREMITIES: 2+ peripheral pulses. No evidence of peripheral edema. No calf tenderness noted. NEUROLOGIC: Cranial nerves II-XII intact. - Labs CBC & Chem 7: 07/20/22 23:00 07/20/22 23:00 Labs: Abnormal Lab Results - Last 24 Hours (Table) 07/22/22 07/22/22 07/23/22 Range/Units 14:21 20:15 00:24 POC Glucose (mg/dL) 141 H 179 H (70-110) mg/dL Procalcitonin 5.05 H (0.02-0.09) ng/mL 07/23/22 07/23/22 Range/Units 06:18 11:56 POC Glucose (mg/dL) 149 H 210 H (70-110) mg/dL Procalcitonin (0.02-0.09) ng/mL Microbiology - Last 24 Hours (Table) 07/20/22 23:00 Blood Culture - Preliminary Blood No Growth after 48 hours Assessment and Plan Assessment: (1) Acute and chronic respiratory failure with hypoxia Current Visit: Yes Status: Acute Code(s): J96.21 - ACUTE AND CHRONIC RESPIRATORY FAILURE WITH HYPOXIA SNOMED Code(s): 54481056 (2) Acute exacerbation of chronic obstructive pulmonary disease (COPD) Current Visit: Yes Status: Acute Code(s): J44.1 - CHRONIC OBSTRUCTIVE PULMONARY DISEASE W (ACUTE) EXACERBATION SNOMED Code(s): 750599510 (3) Pneumonia Current Visit: Yes Status: Acute Code(s): J18.9 - PNEUMONIA, UNSPECIFIED ORGANISM SNOMED Code(s): 935723927 (4) dementia (5)History of compression fracture of the lumbar spine, status post T11 to L2 posterior instrumentation, stabilization with L1 kyphoplasty last year. Plan: Continue on current medication regime ,monitoring and symptomatic treatment. Chest x-ray reporting worsening bilateral infiltrates , antibiotics adjusted .PRn Bipap.Case management reporting son is coming in/ requested i [facility] hosp[facility] meeting-[facility] notified. Prognosis guarded given multiple complex medical issues. The impression and plan of care has been dictated as directed. : I performed a history and examination of this patient, discussed the same with the dictator. I agree with the dictator's note ,documented as a scribe. Any additional findings or plans will be noted.
--- NOTE | 2022-07-24 16:25 | P.DS ---
Providers Date of admission: 07/21/22 00:34 Expected date of discharge: 07/23/22 Attending physician: Geneva Grossman Consults: 07/21/22 03:51 Consult Physician Urgent Consulting Provider: Gloria Bowden Consult Reason/Comments: Pnemonia/ SOB Do you want consulting provider notified?: Already Contacted Primary care physician: Todd Chow [facility] Course: Final Diagnoses: (1) Acute and chronic respiratory failure with hypoxia Current Visit: Yes Status: Acute Code(s): J96.21 - ACUTE AND CHRONIC RESPIRATORY FAILURE WITH HYPOXIA SNOMED Code(s): 07485466 (2) Acute exacerbation of chronic obstructive pulmonary disease (COPD) Current Visit: Yes Status: Acute Code(s): J44.1 - CHRONIC OBSTRUCTIVE PULMONARY DISEASE W (ACUTE) EXACERBATION SNOMED Code(s): 990128726 (3) Pneumonia Current Visit: Yes Status: Acute Code(s): J18.9 - PNEUMONIA, UNSPECIFIED ORGANISM SNOMED Code(s): 643010053 (4) dementia (5)History of compression fracture of the lumbar spine, status post T11 to L2 posterior instrumentation, stabilization with L1 kyphoplasty last year. Moderate protein calorie malnutrition, multifactorial ,secondary to advanced COPD, dementia No code, no CPR, no intubation [facility] course:This is an 81-year-old gentleman admitted with acute hypoxic respiratory failure, secondary to end-stage COPD, pneumonia and multiple other medical issues. Chest x-ray yesterday reporting extensive bilateral pulmonary infiltrates increased. Maintained on nebulized bronchodilators, IV steroids, with antibiotics adjusted, converted to Zosyn. Currently on 2 L nasal cannula, maintaining O2 sats in the 90s. Reports minimal nonproductive cough. Afebrile. Blood cultures reporting no growth at 48 hours. Reports son is looking at an AFC, currently declining home care. Chest x-ray reporting worsening bilateral infiltrates , antibiotics adjusted .PRn Bipap.Case management reporting son is coming in/ requested informational hospice meeting-[facility] notified. Prognosis guarded given multiple complex medical issues. Son and patient met with hospice team, and proceeded to transition to hospice. The impression and plan of care has been dictated as directed. : I performed a history and examination of this patient, discussed the same with the dictator. I agree with the dictator's note ,documented as a scribe. Any additional findings or plans will be noted. Patient Condition at Discharge: Stable Plan - Discharge Summary Discharge Rx Participant: No New Discharge Prescriptions: No Action valACYclovir HCL [Valtrex] 500 mg PO DAILY Sertraline [Zoloft] 25 mg PO HS buPROPion XL [Wellbutrin XL] 150 mg PO DAILY Ofloxacin 0.3% Ophth Soln [Ocuflox Ophth Soln] 4 drops BOTH EYES QMONTHLY Ergocalciferol (Vitamin D2) [Drisdol (50,000 Iu)] 1,250 mcg PO WEEKLY Ciprofloxacin HCl/Dexameth [Ciproflox-Dexameth Otic Susp] 5 drops BOTH EARS Q21D Budesonide/Glycopyr/Formoterol [Breztri Aerosphere Inhaler] 2 puff INHALATION RT-BID Discharge Medication List valACYclovir HCL [Valtrex] 500 mg PO DAILY 06/12/15 [History] Budesonide/Glycopyr/Formoterol [Breztri Aerosphere Inhaler] 2 puff INHALATION RT-BID 07/21/22 [History] Ciprofloxacin HCl/Dexameth [Ciproflox-Dexameth Otic Susp] 5 drops BOTH EARS Q21D 07/21/22 [History] Ergocalciferol (Vitamin D2) [Drisdol (50,000 Iu)] 1,250 mcg PO WEEKLY 07/21/22 [History] Ofloxacin 0.3% Ophth Soln [Ocuflox Ophth Soln] 4 drops BOTH EYES QMONTHLY 07/21/22 [History] Sertraline [Zoloft] 25 mg PO HS 07/21/22 [History] buPROPion XL [Wellbutrin XL] 150 mg PO DAILY 07/21/22 [History] Follow up Appointment(s)/Referral(s): Todd Chow DO [Primary Care Provider] - 1 Week Activity/Diet/Wound Care/Special Instructions: Transitioned to [facility] hospice on 07/23/2022 Discharge/Stand Alone Forms: Who Do I Call?, Assisted Living Facilities, Community Resources, Personal Supervisor Inc[employer] Discharge Disposition: DISCH TO HOSPICE [facility]
== END 2022-07-23 16:16 | disposition hospice, inpatient (51) | DRG 193 ==
LOC: EC 22:07 → 4SSUR 07-21 00:34 → 3SCARD 07-21 04:12
PROVIDERS: ADMIT Hospitalist; ATTEND Hospitalist
PROC: 5A09357 Assistance with Respiratory Ventilation, Less than 24 Consecutive Hours, Continuous Positive Airway Pressure (ICD-10-PCS; principal; 2022-07-21)
DX: J18.9 Pneumonia, unspecified organism (principal); G93.41 Metabolic encephalopathy; J96.21 Acute and chronic respiratory failure with hypoxia; Z68.1 Body mass index [BMI] 19.9 or less, adult; E87.2 Acidosis; E44.0 Moderate protein-calorie malnutrition; J43.9 Emphysema, unspecified; H91.90 Unspecified hearing loss, unspecified ear; J84.10 Pulmonary fibrosis, unspecified; K21.9 Gastro-esophageal reflux disease without esophagitis; K59.00 Constipation, unspecified; N40.0 Benign prostatic hyperplasia without lower urinary tract symptoms; Z51.5 Encounter for palliative care; Z66 Do not resuscitate; Z28.310 Unvaccinated for COVID-19; Z20.822 Contact with and (suspected) exposure to COVID-19; D64.9 Anemia, unspecified; G30.9 Alzheimer's disease, unspecified; F02.80 Dementia in other diseases classified elsewhere, unspecified severity, without behavioral disturbance, psychotic disturbance, mood disturbance, and anxiety; F17.210 Nicotine dependence, cigarettes, uncomplicated; L71.9 Rosacea, unspecified; Z79.899 Other long term (current) drug therapy; Z71.3 Dietary counseling and surveillance; Z87.81 Personal history of (healed) traumatic fracture
CPT/HCPCS: 36415; 36600; 71045; 71046; 80053; 81003; 82805; 83605; 83880; 84145; 85025; 86140; 87040; 87635; 93306; 94640; 94660; 94760; 96360; 96361; 99285

== ENCOUNTER 2022-07-23 15:42 | Inpatient (IN) | payer MEDICAID ==
[2022-07-23] MEDS ORDERED: ONDANSETRON 4 MG/2 ML VIAL IVP PRN (15:50)
[2022-07-23] MEDS ORDERED: ATROPINE OPHTH SOLN 1% 5ML BTL SUBLINGUAL PRN (15:50)
[2022-07-23] MEDS ORDERED: ACETAMINOPHEN SUPPOSITORY 650 MG SUPP RECTAL PRN (15:50)
[2022-07-23] MEDS ORDERED: GLYCOPYRROLATE 0.2 MG/ML 2 ML VIAL IVP PRN (15:50)
[2022-07-23] MEDS ORDERED: MORPHINE SULFATE 2 MG/ML SYRINGE IV PRN (15:50)
[2022-07-23] MEDS ORDERED: SCOPOLAMINE 1 MG/72 HR PATCH TRANSDERM SCH (16:00)
[2022-07-23] MEDS: MORPHINE SULFATE (100 MG/2 ML) 100 MG in SODIUM CHLORIDE 0.9% 100 ML IV SCH (18:35)
[2022-07-24] MEDS ORDERED: SCOPOLAMINE 1 MG/72 HR PATCH TRANSDERM SCH (10:00)
[2022-07-24 11:17] VITALS: BMI 16.9
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
[2022-07-24] MEDS: LORazepam 1 MG/0.5 ML VIAL IV PRN (16:34)
[2022-07-24 16:44] VITALS: BP 115/70; TEMP 99.2
[2022-07-24] MEDS: MORPHINE SULFATE (100 MG/2 ML) 100 MG in SODIUM CHLORIDE 0.9% 100 ML IV SCH (20:03)
[2022-07-25 15:31] VITALS: PULSE 113
[2022-07-25] MEDS: MORPHINE SULFATE (100 MG/2 ML) 100 MG in SODIUM CHLORIDE 0.9% 100 ML IV SCH (16:15)
--- NOTE | 2022-07-25 16:23 | P.PN ---
Subjective Progress Note Date: 07/25/22 H&P Date: 07/24/22 Chief Complaint: Hospice This is an 81-year-old gentleman admitted with acute hypoxic respiratory failure, secondary to end-stage COPD, pneumonia and multiple other medical issues. Chest x-ray yesterday reporting extensive bilateral pulmonary infiltrates increased. Maintained on nebulized bronchodilators, IV steroids, with antibiotics adjusted, converted to Zosyn. Currently on 2 L nasal cannula, maintaining O2 sats in the 90s. Reports minimal nonproductive cough. Afebrile. Blood cultures reporting no growth at 48 hours. Reports son is looking at an AFC, currently declining home care. Chest x-ray reporting worsening bilateral infiltrates , antibiotics adjusted .PRn Bipap.Case management reporting son is coming in/ requested informational hospice meeting-[facility] notified. Prognosis guarded given multiple complex medical issues. Son and patient met with hospice team, and proceeded to transition to hospice. Hospice team qualified patient for [facility] hospice. Continues on comfort care with morphine drip. Patient reports comfort. 07/25/2022 continues on comfort care including morphine drip, unresponsive, shallow breathing, periods of apnea. Appears comfortable. Objective - Vital Signs Vital signs: Vital Signs Temp 99.2 F 07/24/22 16:00 Pulse 113 H 07/25/22 15:30 Resp 6 L 07/25/22 15:30 BP 115/70 07/24/22 16:00 Pulse Ox 98 07/24/22 16:00 FiO2 Intake & Output 07/24/22 07/25/22 07/25/22 18:59 06:59 18:59 Intake Total 64.413 17.68 102 Output Total 200 100 Balance -135.587 -82.32 102 Weight 47.6 kg Intake: Intake, IV Titration 64.413 17.68 102 Amount Morphine Sulfate (100 mg/ 64.413 17.68 102 2 ml) 100 mg In Sodium Chloride 0.9% 100 ml @ 1 MG/HR 1.02 mls/hr IV . Q24H [facility] Rx#:[id number] Output: Urine 200 100 Other: Voiding Method External Catheter External Catheter External Catheter # Voids 0 Assessment and Plan Assessment: (1) Acute and chronic respiratory failure with hypoxia Current Visit: Yes Status: Acute Code(s): J96.21 - ACUTE AND CHRONIC RESPIRATORY FAILURE WITH HYPOXIA SNOMED Code(s): 83273963 (2) Acute exacerbation of chronic obstructive pulmonary disease (COPD) Current Visit: Yes Status: Acute Code(s): J44.1 - CHRONIC OBSTRUCTIVE PULM ONARY DISEASE W (ACUTE) EXACERBATION SNOMED Code(s): 481033378 (3) Pneumonia Current Visit: Yes Status: Acute Code(s): J18.9 - PNEUMONIA, UNSPECIFIED ORGANISM SNOMED Code(s): 760198750 (4) dementia (5)History of compression fracture of the lumbar spine, status post T11 to L2 posterior instrumentation, stabilization with L1 kyphoplasty last year. Moderate protein calorie malnutrition, multifactorial ,secondary to advanced COPD, dementia No code, no CPR, no intubation GIP hospice Plan: Continue on current medication regime ,monitoring and symptomatic treatment. Maintained on comfort care/morphine drip. No family yet at bedside this morning. The impression and plan of care has been dictated as directed. : I performed a history and examination of this patient, discussed the same with the dictator. I agree with the dictator's note ,documented as a scribe. Any additional findings or plans will be noted.
[2022-07-25] MEDS: LORazepam 1 MG/0.5 ML VIAL IV PRN (17:22)
[2022-07-25 17:25] VITALS: RESP 10
== END 2022-07-25 17:55 | disposition expired | DRG 951 ==
LOC: 3SCARD 17:00
PROVIDERS: ADMIT Family Medicine; ATTEND Family Medicine
DX: Z51.5 Encounter for palliative care (principal); J96.21 Acute and chronic respiratory failure with hypoxia; J18.9 Pneumonia, unspecified organism; J44.1 Chronic obstructive pulmonary disease with (acute) exacerbation; J44.0 Chronic obstructive pulmonary disease with (acute) lower respiratory infection; E44.0 Moderate protein-calorie malnutrition; Z68.1 Body mass index [BMI] 19.9 or less, adult; K21.9 Gastro-esophageal reflux disease without esophagitis; F03.90 Unspecified dementia, unspecified severity, without behavioral disturbance, psychotic disturbance, mood disturbance, and anxiety; F17.210 Nicotine dependence, cigarettes, uncomplicated; Z79.52 Long term (current) use of systemic steroids; Z79.899 Other long term (current) drug therapy; Z87.19 Personal history of other diseases of the digestive system